=== PATIENT | male | born 1980 | race Caucasian/White ===

== ENCOUNTER → 2023-11-01 08:00 | Outpatient (BNV) | payer OTHER, MEDICAID, SELFPAY | PROVIDERS: Visit Provider Clinical Nurse Specialist Psychiatric/Mental Health | DX: F25.1 Schizoaffective disorder, depressive type (principal); F41.1 Generalized anxiety disorder; F14.20 Cocaine dependence, uncomplicated; F12.20 Cannabis dependence, uncomplicated | CPT/HCPCS: 90792 ==

== ENCOUNTER 2023-11-02 13:42 | Outpatient (REF) | payer OTHER, SELFPAY ==
[2023-11-02 14:08] LABS: Amphetamine Screen Urine Not Detected (Not Detect); Barbiturates, Urine Not Detected (Not Detect); Benzodiazepines Screen Urine Not Detected (Not Detect); Buprenorphine Scr Not Detected (Not Detect); Cannabinoid Screen Urine POSITIVE (Not Detect); Cocaine Screen Urine POSITIVE (Not Detect); Fentanyl, urine Not Detected (Not Detect); Methadone Screen, Urine Not Detected (Not Detect); Opiate Screen Urine Not Detected (Not Detect); Oxycodone Screen Urine Not Detected (Not Detect); Phencyclidine Screen Urine Not Detected (Not Detect)
== END 2023-11-02 13:43 | disposition home or self-care (01) ==
LOC: HO.LNP 13:42
PROVIDERS: Visit Provider Clinical Nurse Specialist Psychiatric/Mental Health
DX: F12.20 Cannabis dependence, uncomplicated (principal); F14.20 Cocaine dependence, uncomplicated; F25.1 Schizoaffective disorder, depressive type
CPT/HCPCS: 80307

== ENCOUNTER → 2023-11-05 08:00 | Outpatient (BNV) | payer OTHER, MEDICAID, SELFPAY | PROVIDERS: Visit Provider Psychiatry & Neurology Psychiatry | DX: F25.1 Schizoaffective disorder, depressive type (principal); F41.1 Generalized anxiety disorder; F14.20 Cocaine dependence, uncomplicated | CPT/HCPCS: 99213 ==

== ENCOUNTER 2023-11-11 10:00 | Outpatient (RCR) | payer OTHER, SELFPAY ==
--- NOTE | 2023-11-01 11:01 | P.PNPSP_ITS ---
Subjective Subjective Reason For Visit: depression,anxiety,JEFF Assessment & Plan Certification I certify that partial hospital treatment is medically necessary due to the symptoms and problems resulting from the patient's mental illness and the failure to treat the patient at the partial hospital level of care would likely result in the patient requiring inpatient psychiatric care which could not be prevented at a less intensive level of care. Total time managing care of this patient today ____ minutes. Discharge Plan Discharge Attending provider: Sarita Garvin Print Language: Spanish
[2023-11-01 13:11] VITALS: BP 117/79; PULSE 98; TEMP 36.8
[2023-11-01 13:14] VITALS: BMI 29.8
--- NOTE | 2023-11-01 13:56 | P.HPPSP_ITS ---
HPI Date of Service: 11/01/23 Chief Complaint: depression,anxiety,JEFF Sources of Information: patient interviewed, chart reviewed and crisis/core team assessment reviewed HPI Healthcare Proxy: No Guardianship: No Narrative: 42 yo male referred to PHP from [facility] where he was sect 35 by his [place] [employer] due to violating his probation and using cocaine daily. Pt tells ne he has schizophrenia. He is on Invega and was on Invega Sustenna IM which worked well but the tablets PO don't work as well. Pt states that he struggles with hearing voices and seeing visions. He also says he has not had a therpaist for a while. He reports depression, anxiety, lack of enjoyments, forgetfulness, poor sleep and a feeling hopelessness. He denies any current SI or HI. He reports he drank a beer yesterday but only drinks one beer approximately 10-12 times a year and doesn't consider it a problem. Pt has no current providers but was referred to [facility] Past Psychiatric History: [facility] 2023 65 day inpt sect 35. long hx of tx on and off since childhood- he is unable to give details. suicide attempt 12 yrs ago after girlfriend . [facility] Medical History (Updated 11/01/23 @ 14:25 by Rosario Ca APRN) Cocaine abuse GERD (gastroesophageal reflux disease) Family History: pt bron and raised in [place] by bio parents. He has 3 sibs 2 older and 1 younger. 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 pt currently receives SSDI. Social History: pt lives with parents in [place]. ; pt is single Substance History: long hx of substance use - started using oxycontin and percocet in his 20's stopped using opiates 10 yrs ago. pt uses cannabis daily and uses cocaine episodically last use being one week ago. Trauma History: unknown Diagnostics Vital Signs (24Hr): Vital Signs - 24 hr 11/01/23 13:11 Temperature 98.2 F Pulse Rate 98 Blood Pressure 117/79 BMI result Body Mass Index 29.8 Meds/Allergies Allergies Allergies Allergy/AdvReac Type Severity Reaction Status Date / Time No Known Allergies Allergy Verified 11/01/23 13:14 Mental Status Exam Mental Status Exam Patient Appearance: Appropriate Patient Orientation: Person, Place, Time and Situation Level of Consciousness: Awake Patient Behavior: Appropriate and Passive Mood Description: Withdrawn Ability to Follow Directions: Fair Speech Pattern: Monotone and Delayed Memory Description: Episodic Impaired Hallucinations: Auditory and Visual Thought Process: Slowed Thinking Judgement: Poor Assessment & Plan Assessment & Plan (1) Schizoaffective disorder, depressive type: Status: Acute Code(s): F25.1 - Schizoaffective disorder, depressive type (2) LISY (generalized anxiety disorder): Status: Acute Code(s): F41.1 - Generalized anxiety disorder (3) Cocaine abuse: Status: Inactive Code(s): F14.10 - Cocaine abuse, uncomplicated (4) Cocaine use disorder, severe, dependence: Status: Acute Code(s): F14.20 - Cocaine dependence, uncomplicated (5) Cannabis use disorder, severe, dependence: Status: Acute Code(s): F12.20 - Cannabis dependence, uncomplicated Plan admit to [facility] with dual dx focus continue current medications Patient educated on: therapeutic strategies Informed Consent: further education needed Reason for continued partial hosp. stay Substantial Risk for: harm to self and inability to function Certification I certify that partial hospital treatment is medically necessary due to the symptoms and problems resulting from the patient's mental illness and the failure to treat the patient at the partial hospital level of care would likely result in the patient requiring inpatient psychiatric care which could not be prevented at a less intensive level of care. Time Spent With Patient Time: Total time managing care of this patient today _60___ minutes.
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
--- NOTE | 2023-11-02 09:04 | PC.NURSE ---
Pierre agreed yesterday to complete NGO this morning. I spoke to Pierre when he came into the program this morning. He stated he was not able to give me a sample at this time however he is drinking soda and should be able to complete the NGO soon.
--- NOTE | 2023-11-03 12:30 | PC.NURSE ---
Pierre's NGO positive for Cocaine and Marijuana. I spoke to Pierre about the test and he stated he has not used cocaine since last and stated he would tell me if he used again. I asked Gordon if he could complete another NGO next week and he agreed. He has been attending the substance use groups at [facility]. Denied any cravings. Pierre signed consent to release information and obtain information from [facility]. Will request records.
--- NOTE | 2023-11-03 13:09 | PC.NURSE ---
Called patient's father Sumit at [phone] on 11/02/23 with patient's permission and while patient was present yesterday. Patient reportedly missed his prescriber appointment that was set up by the [facility], his father reports that it was his fault. Stated Pierre is taking his medications. Also stated that patient has given himself the Invega Sustenna injections in the past and Pierre's aunt, who is also a nurse, has given him Invega injections in the past as well. I told both the father and Pierre that he should not be given himself these injections. Medication education provided. Unclear whether patient is taking his medications. Requested records from [facility]. Called patient's pharmacy and confirmed again that patient has not picked up prescriptions for Clonidine, Hydroxyzine, Diphenhydramine, and Invega Sustenna which were filled on 10/12/23. Patient insists that he is taking the medications.
--- NOTE | 2023-11-03 16:35 | HO.PHP ---
Client's case has been opened and reviewed in treatment team.
--- NOTE | 2023-11-03 17:03 | HO.PHP ---
PHP staff member faxed a referral for OP therapy, med management, and college football coach to [facility]. PHP staff member is awaiting a call back.
--- NOTE | 2023-11-05 11:31 | HO.PHP ---
Pierre told this staff that he needed to leave program momentarily to give the car he was using to someone else, he was not specific with details surrounding this. He told staff he wouldn't be gone long, less than 20 minutes. He left around 10:50 to do so, and he did not return until the end of group 2 at 11:30. Staff reached out to his father, but he was back in the group setting at this time.
--- NOTE | 2023-11-05 11:39 | P.PNPSP_ITS ---
Subjective Subjective Date of Service: 11/03/23 Reason For Visit: depression,anxiety,JEFF Medical Problems Affecting Mental Status: No Interim History: Pt states he is doing ok has chronic visual aud hallucinations states he was given his last invega sustena dose.C/o poor sleep anxiety no self harm benadryl 100 clonidine 0.1 Medication Compliance: Yes (reprtedly) Mental Status Exam Mental Status Exam Patient Appearance: Appropriate Patient Orientation: Person, Place, Time and Situation Level of Consciousness: Awake Patient Behavior: Appropriate and Passive Mood Description: Withdrawn Ability to Follow Directions: Fair Speech Pattern: Monotone and Delayed Memory Description: Episodic Impaired Hallucinations: Auditory and Visual Thought Process: Slowed Thinking Judgement: Poor Diagnostics Vital Signs (24Hr): BMI result Body Mass Index 29.8 Assessment & Plan Assessment & Plan (1) Schizoaffective disorder, depressive type: Status: Acute Code(s): F25.1 - Schizoaffective disorder, depressive type (2) LISY (generalized anxiety disorder): Status: Acute Code(s): F41.1 - Generalized anxiety disorder (3) Cocaine use disorder, severe, dependence: Status: Acute Code(s): F14.20 - Cocaine dependence, uncomplicated Plan pt reportedly has pending invega inj on high dose benadryl disccused inc clonidine 0.2 has tolerated 0.1 hs for extended period no current dizziness sys greater than 110 f/u next wk target anxiety and sleep negin cocaine states had 1 slip Patient educated on: diagnosis and medication risk/benefits Informed Consent: understands Reason for contiued partial hosp. stay Substantial Risk for: inability to function and rapid decompensation Certification I certify that partial hospital treatment is medically necessary due to the symptoms and problems resulting from the patient's mental illness and the failure to treat the patient at the partial hospital level of care would likely result in the patient requiring inpatient psychiatric care which could not be prevented at a less intensive level of care. Total time managing care of this patient today ____ minutes. Discharge Plan Discharge Attending provider: Sarita Garvin Medications: No Action clonidine HCl 0.1 mg Tablet 0.1 mg PO BEDTIME diphenhydramine HCl 50 mg Capsule 100 mg PO BEDTIME Rx Instructions: 2 capsules at bedtime. hydroxyzine pamoate 50 mg Capsule 50 mg PO BID Invega Sustenna 234 mg/1.5 mL Syringe 234 mg IM Q30D Patient Comments: Patient stated his father keeps track of when this is due and he stated he is due soon. Stand Alone Forms: Patient Portal Discharge page Print Language: Bahamian
--- NOTE | 2023-11-05 11:50 | PC.NURSE ---
Patient told staff during second group that he needed to leave the group and will be back in 20 minutes as he needed to switch cars with his father. I called patient as he did not return in 20 minutes however, I was not able to get a hold of the patient as the number listed is not correct number. I called and spoke to patient's father Sumit who stated he will try and get a hold of Pierre and call me back. I asked Sumit if he was helping Sumit with his medications and he stated Sumit is taking medications on his own and will be getting the Invega Sustenna on Wednesday administered by his aunt who is a nurse. Dr Warner is aware. Pierre came back to the program shortly afterwards and was vague about where he went to. Stated he was getting some books from someone. I asked him if he was out getting substances and he stated he was not. Did not appear to be impaired. Will repeat NGO next week.
--- NOTE | 2023-11-05 13:11 | HO.PHP ---
When staff returned to group 3, Pierre had returned to program, and it appears novels were laid on out the table for other members to take. He stated he was switching or returning a car during this time. He was vague and unclear with details surrounding this.
--- NOTE | 2023-11-08 09:20 | HO.PHP ---
[facility] staff member reached out to Pierre due to Pierre not showing for program this morning. Pierre disclosed that his father contacted the program and left a message he believes it was for the nurse. Pierre disclosed he is not feeling well, in which he reported feeling dizzy and is having a hard time with moving around. Pierre reported no safety concerns and stated he will be in attendance to program tomorrow. [facility] staff member was receptive. [facility] staff member informed the nurse around concerns with Pierre stating he was dizzy. The nurse reached out to Pierre to further assess.
--- NOTE | 2023-11-08 09:53 | PC.NURSE ---
Pierre called out sick today. He c/o dizziness, weakness, stomach pain x [address] Warner aware. Patient advised to hold Clonidine and increase fluid intake per Dr. Warner. Patient also advised to f/u with Urgent Care. He stated he has plans to go to Urgent Care today. He is home with his father.
--- NOTE | 2023-11-09 09:13 | PC.NURSE ---
Patient's father brought in an email from [facility] with patient's medication list. Copy in patient's chart.
[2023-11-09 12:00] VITALS: BP 99/69; PULSE 79; TEMP 36.9
[2023-11-09 12:51] VITALS: BP 88/63; PULSE 75
--- NOTE | 2023-11-09 12:54 | PC.NURSE ---
12:00 BP 99/69 P 79. Reports he had smoked a cigarette recently. Repeat BP at 12:50 88/63 P 75. Patient encouraged to increase fluid intake. He was given 3 bottles of water to drink. He reports he stopped taking the Clonidine as advised by Dr. Warner. He stated he feels better today. Less dizzy. Reports that he was feeling sick on Wednesday when he got home from the program, reports some nausea and vomiting on Wednesday and Wednesday morning. Stated he is feeling much better today. Patient just came to my office and stated he is feeling a little nauseated and is tired. He stated he has been sleeping a lot d/t not feeling well. He stated he has not taken his medications in a few days d/t not feeling well with the exception of taking the Invega Sustenna on Wednesday. He called his father to come pick him. I spoke to his father and suggested he f/u with urgent care as well as increase fluid intake. Dr Garvin is aware.
--- NOTE | 2023-11-10 09:54 | PC.NURSE ---
Patient has a New PCP appointment on January at 9:[address] Leeann Rivera at [address] [place] [address] [place] [address]. Office Number [phone]. Bring in medication bottles to your appointment.
--- NOTE | 2023-11-10 12:52 | PC.NURSE ---
Patient left before the second group started thus I was not able to take his BP. I called Pierre who stated he is not feeling right physically. He stated he was experiencing dizziness. Denied nausea or vomiting. He stated he feels embarrassed however reports he has been having diarrhea for the past 3 days. He stated he has been drinking fluids as his father bought him Pedialyte. I advised him to go to Urgent Care today to f/u. He stated his father is going to take him today. He also stated his mother is taking him to get food.
--- NOTE | 2023-11-11 09:05 | PC.NURSE ---
Pierre stated he is feeling better today. He has been increaseing his fluid intake. No dizziness, BP 92/67 P 83.
[2023-11-11 09:08] VITALS: BP 92/62; PULSE 83
--- NOTE | 2023-11-11 10:47 | HO.PHP ---
PHP staff member received a VM from Vanita from [facility] with Pierre's OP provider appointments. Pierre's OP therapy intake appointment is scheduled for November 17, 2023 at 10 AM with Sonia Merino at the [address] [place] [address] location in [place], [place]. Pierre's med provider appointment will be scheduled for December 21, 2023 at 11 AM via telehealth with Kendra Winter.
--- NOTE | 2023-11-11 11:35 | PC.NURSE ---
Pierre asked staff if he could go to the ER for a crisis evaluation. He reported depression, does not want to live and is sick of dealing with everything going on in his head. Stated he rather kill himself than go back to long-term. Patient reports he used cocaine yesterday. AH telling him he is worthless and telling him to get high, telling him to kill himself. seeing people make faces at him. Patient is currently on probation and one of the terms of his probation is not to use substances. Ariana escorted him to the ER for evaluation without incident. Nurse to nurse done with Maria A BOWLING in [place]. [facility] asian studies program chair Paola Colunga to notify Care Team.
--- NOTE | 2023-11-11 11:37 | HO.PHP ---
[facility] staff went to meet with Pierre to provide him with his appointment dates and times. When I went to group room, Pierre was struggling with emotional regulation and was tearful. [facility] staff member met with Pierre who expressed that he needs to go into inpatient level of care because his medication isn't right. [facility] staff further explored what he meant by that. Pierre disclosed that he is experiencing auditory and visual hallucinations, in which he noted hearing voices telling him he is worthless, telling him to get high, and telling him to kill himself. Pierre voiced that he is also seeing people looking at him making faces. Pierre expressed struggling with being able to decipher who is really and whats real. Pierre mentioned that he feels he is unsafe and is uncertain to if he will act on it. Pierre shared that he also relapsed on Cocaine yesterday and was supposed to see his horticultural technical officer. Pierre noted he did not see his horticultural technical officer and expressed worry about being placed back in prison due to being on probation. Pierre expressed suicidal comments such as I rather kill myself then go to prison and he is sick of dealing with everything going on in his head. Pierre reported that he feels as though he is going to snap. [facility] staff member explored what that looks like for him. Pierre replied with he smacks his head against the wall. Pierre was brought down to [facility] ED to be evaluated by the Care team. [facility] staff member informed Shantel of the incident, who provided information to the Care team.
--- NOTE | 2023-11-11 14:39 | HO.PHP ---
[facility] staff member spoke with Latasha from the Care Team to engage in care coordination around Pierre Turcios. Latasha asked how Pierre has been presenting in groups, in which the [facility] staff member informed her that Pierre has been engaged within the group discussions but has noted that being in a group setting is difficult due to the auditory and visual hallucinations. Latasha shared that he appears sedated and asked how he presented in groups today. PHP staff voiced that Pierre appeared well this morning but became emotionally dysregulated around 10:45 AM. PHP staff did report that there were a couple days where Pierre was unable to complete a full day program due to feeling sick reporting being dizzy. Latasha was receptive and noted that he is only providing one word answers and appears sedated. PHP staff member voiced that he could be exhausted from crying. Latasha was receptive. [facility] staff informed Latasha if she needs any other information to feel free to reach back out. Latasha was receptive.
== END 2023-11-11 23:59 | disposition home or self-care (01) ==
LOC: HO.PHPA 10:00
PROVIDERS: Visit Provider Psychiatry & Neurology Psychiatry
DX: F25.1 Schizoaffective disorder, depressive type (principal); F41.1 Generalized anxiety disorder; F14.20 Cocaine dependence, uncomplicated; F12.20 Cannabis dependence, uncomplicated
CPT/HCPCS: 90791; 90853

== ENCOUNTER 2023-11-11 11:18 | Inpatient (IN) | payer OTHER, SELFPAY ==
[2023-11-11 11:35] VITALS: BP 110/70; PULSE 85; RESP 16; TEMP 36.5; O2SAT 97; BMI 27.7
--- NOTE | 2023-11-11 11:36 | ED_ITS ---
HPI - Psych General Chief Complaint: Psychiatric Symptoms Stated Complaint: crisis si Time Seen by Provider: 11/11/23 11:51 Source: patient Mode of arrival: ambulatory Limitations: no limitations History of Present Illness ED Provider: Delia Foote PA-C HPI Narrative: Patient is a 42 year old assigned male at with a history of LISY and schizoaffective disorder presenting to the emergency department today with suicidal ideation and worsening depression. Patient states that he is currently in the partial program but his depression is getting worse and he is now suicidal. Patient denies any dizziness, lightheadedness, abdominal pain, nausea, vomiting, fever, chills, blurry vision, double vision, loss of vision, chest pain, difficulty breathing, shortness of breath, back pain, night sweats, pain with urination, increased urinary frequency, increased urinary urgency, blood in his urine or stool, syncope or a near syncopal episode, recent trauma or falls, bowel incontinence, bladder incontinence, or any other complaints at this time. MD complaint: suicidal ideation and feels depressed Onset (ago): day(s) Associated psychiatric symptoms: suicidal ideation Associated symptoms: denies other symptoms Related Data Home Medications ?Medication ?Instructions ?Recorded ?Confirmed clonidine HCl 0.1 mg tablet 0.1 mg PO BEDTIME 11/01/23 11/01/23 diphenhydramine HCl 50 mg capsule 100 mg PO BEDTIME 11/01/23 11/01/23 hydroxyzine pamoate 50 mg capsule 50 mg PO BID 11/01/23 11/01/23 paliperidone palmitate 234 mg/1.5 234 mg IM Q30D 11/01/23 11/01/23 mL intramuscular syringe (Invega Sustenna) olanzapine 10 mg tablet 10 mg PO QPM 11/09/23 11/09/23 Allergies Allergy/AdvReac Type Severity Reaction Status Date / Time No Known Allergies Allergy Verified 11/11/23 11:39 Review of Systems 2 Constitutional: Constitutional: Reports no additional constitutional complaints, Denies chills, Denies fever(s) and Denies night sweats Eyes: Eyes: Reports no additional eye complaints, Denies blurry vision, Denies change in vision, Denies diplopia, Denies eye discharge, Denies loss of vision and Denies eye pain ENT: Denies dizziness Cardiovascular: Cardiovascular: Reports no additional cardiovascular complaints, Denies chest pain, Denies lightheadedness, Denies Loss of Consciousness and Denies dyspnea Respiratory: Respiratory: Reports no additional respiratory complaints and Denies dyspnea Gastrointestinal: Gastrointestinal: Reports no additional gastrointestinal complaints, Denies abdominal pain, Denies melena, Denies hematochezia, Denies change in bowel habits and Denies change in stool character Genitourinary: Genitourinary: Reports no additional male genitourinary complaints, Denies hematuria, Denies oliguria, Denies difficulty urinating, Denies dysuria, Denies urinary frequency, Denies urinary hesitancy, Denies urinary incontinence and Denies urinary urgency Musculoskeletal: Musculoskeletal: Reports no additional musculoskeletal complaints, Denies numbness and Denies tingling Neurologic: Denies dizziness, Denies loss of vision, Denies numbness and Denies tingling Psychiatric: Psychiatric: Reports depression, Denies homicidal ideation and Reports suicidal ideation Endocrine: Endocrine: Reports no additional endocrine complaints Hematologic/Lymphatic: Hematologic/Lymphatic: Reports no additional hematologic/lymphatic complaints Allergic/Immunologic: Allergic/Immunologic: Reports no additional allergic/immunologic complaints [facility] Past Medical History Attestation statement: The following information was validated with the patient. Source: old records reviewed and nursing notes reviewed Medical History Cocaine abuse GERD (gastroesophageal reflux disease) Social History Social History Household Members: Family Patient Tobacco Use Status: Current everyday Tobacco user Tobacco use type: Cigarette Cigarette Packs Per Day: 1 Smoked in Last 30 Days: Yes Use of substances other than those prescribed or required for medical reasons: Yes Substance Use Type: Marijuana Substance Use Frequency: Daily Substance Use Frequency Other:: relapsed yesterday and used cocaine Last Used Substance: Just Prior to Admission Advance Directives: No Do you have a plan to hurt others: No Plan Physical Exam 2 Vital Signs: Vital Signs: Last Vital Signs Temp 97.7 F 11/11/23 11:35 Pulse 85 11/11/23 11:35 Resp 16 11/11/23 11:35 BP 110/70 11/11/23 11:35 Pulse Ox 97 11/11/23 11:35 O2 Del Method Room Air 11/11/23 11:35 BMI result Body Mass Index 27.7 Const: General: cooperative, no acute distress, alert and awake Nutritional Appearance: well nourished Orientation/consciousness: patient oriented x3 Limitations: no limitations HEENT: Head: Yes normal to inspection and Yes atraumatic Ears: hearing grossly normal bilaterally and external ears normal General nose exam: Normal external nose present, no nasal discharge noted and no epistaxis Face and sinus: Yes normal facial exam, No abrasion and No laceration Mouth: Normal oral and palatal mucosa present, no drooling and no muffled voice Eyes: General: appearance normal, both eyes and all related structures P eriorbital: periorbital findings normal Eyelids: Yes eyelids normal C onjunctivae: conjunctivae normal Pupils: Equal, round and reactive pupils present EOM: EOMs intact bilaterally Neck: Neck: Yes normal visual inspection, Yes full ROM and Yes no lymphadenopathy Chest: Chest palpation & inspection: normal inspection of the chest Resp: Effort & Inspection: normal respiratory effort and able to speak in complete sentences GI: Inspection: Yes normal to inspection Neuro: General: patient oriented x3 and moves all extremities Cranial nerves: Yes Equal, round and reactive pupils present Cognition (Neuro): n ormal cognition Extrem: General: Yes normal to inspection, Yes full ROM and Yes capillary refill normal Psych: Appearance: grossly normal Mental Status: mental status grossly normal Affect: Sad affect present Attitude: Guarded attititude/behavior present Thought content: Suicidality present Course Course Course Narrative: This is a Rapid Medical Examination (RME) performed by Rosalio Bhandari PA-C in triage. Full HPI, ROS, assessment and treatment plan per primary provider in the Main ED. 42 yo male with history of schizoaffective disorder, anxiety, polystubstance use disorder who presents to the ER from partial hospitalization program where he has been for the last 2 weeks with worsening depression and new SI for the last 2 days. has been forgetting to take his psych meds, per dad he has been on meds since age 9. hx suidide attempts in the past. no drug or ETOH use today. was last inpatient at [facility] a few weeks ago and had some med adjustments. Plan: medically clear and CARE team evaluation Medical Decision Making Medical Decision Making MDM Narrative: Patient is a 42 year old assigned male at with a history of LISY and schizoaffective disorder presenting to the emergency department today with increased depression and suicidal ideation. Patient's physical exam was as noted in the physical exam portion of this note. Patient's blood work was unremarkable. Patient's urine showed no acute process. I explained my physical exam findings as well as all test results to the patient. I answered all questions asked by the patient. Patient is currently awaiting CARE team evaluation. Patient's disposition will be determined after CARE team evaluation. Differential Diagnosis Differential Diagnoses: The differential diagnosis associated with the presentation includes Depression Suicidal ideation Admission/Observation Consideration of admission/observation: Escalation of care including admission/observation considered Patient's disposition will be determined after CARE team evaluation. Lab Data [facility] Lab Attestation statement: I reviewed the patient's lab results. My interpretation of these results are in the MDM Rationale portion of this note. 11/11/23 11:46 11/11/23 11:45 Labs: Lab Results 11/11/23 11/11/23 Range/Units 11:45 11:46 WBC 8.4 (4.8-10.8) X10*3/uL RBC 4.44 L (4.60-5.80) X10*6/uL Hgb 13.1 L (14.0-18.0) g/dl Hct 37.5 L (42.0-52.0) % MCV 84.5 (80.0-98.0) fL MCH 29.5 (27.0-33.0) pg MCHC 34.9 (31.0-36.0) g/dl RDW 13.5 (11.0-16.0) % Plt Count 324 (160-400) X10*3/uL MPV 8.8 L (9.4-12.4) fL Immature Gran % (Auto) 0.4 (0.0-0.4) % Neut % (Auto) 64.6 (45-73) % Lymph % (Auto) 25.0 (20-40) % [place] % (Auto) 7.0 (2-11) % Eos % (Auto) 2.4 (0-4) % Baso % (Auto) 0.6 (0-2) % Lymph # (Auto) 2.1 (1.2-4.9) X10*3/uL [place] # (Auto) 0.6 (0.1-1.2) X10*3/uL Eos # (Auto) 0.2 (0.0-0.4) X10*3/uL Baso # (Auto) 0.1 (0.0-0.2) X10*3/uL Abs Immat Gran (auto) 0.03 (0.00-0.03) X10*3/uL Absolute Neuts (auto) 5.5 (2.0-8.3) x10*3/uL Absolute Nucleated RBC 0.000 (0.0-0.012) X10*3/uL Nucleated RBC % (auto) 0.0 (0.0-0.2) /100WBC Sodium 138 (135-145) mmol/L Potassium 3.7 (3.3-5.1) mmol/L Chloride 109 H (96-108) mmol/L Carbon Dioxide 22 (22-29) mmol/L Anion Gap 11 L (12-20) BUN 8 L (9-16) mg/dL Creatinine 0.86 (0.5-1.4) mg/dL Estim Creat Clear Calc 119.7 Estimated GFR > 60 Random Glucose 101 (60-115) mg/dL Calcium 9.5 (8.4-10.2) mg/dL Magnesium 1.9 (1.6-2.6) mg/dL Total Bilirubin 0.4 (0.0-1.0) mg/dL Direct Bilirubin < 0.1 (0.0-0.5) mg/dL AST 14 (5-37) U/L ALT 11 (0-40) U/L Alkaline Phosphatase 75 (39-117) U/L Total Protein 6.8 (6.5-8.0) g/dL Albumin 3.9 (3.5-5.0) g/dL Ethyl Alcohol < 10 mg/dL Discharge Plan Discharge Clinical Impression: Suicidal ideation Patient Disposition: Still a Patient Prescriptions: No Action clonidine HCl 0.1 mg Tablet 0.1 mg PO BEDTIME diphenhydramine HCl 50 mg Capsule 100 mg PO BEDTIME Rx Instructions: 2 capsules at bedtime. hydroxyzine pamoate 50 mg Capsule 50 mg PO BID Invega Sustenna 234 mg/1.5 mL Syringe 234 mg IM Q30D Patient Comments: Patient stated his father keeps track of when this is due and he stated he is due soon. olanzapine 10 mg Tablet 10 mg PO QPM Interventions: [place]-Suicide Risk Severity Scale Last Done: 11/11/23 12:08 Print Language: Polish
[2023-11-11 11:56] LABS: MANUAL DIFF FLAG NO
[2023-11-11 12:00] LABS: Basophils Absolute Auto 0.1 X10*3/uL (0.0-0.2); Basophils Percent Auto 0.6 % (0-2); Eosinophils Absolute Auto 0.2 X10*3/uL (0.0-0.4); Eosinophils Percent Auto 2.4 % (0-4); Hematocrit 37.5 % (42.0-52.0); Hemoglobin 13.1 g/dl (14.0-18.0); Imm Gran Abs Auto 0.03 X10*3/uL (0.00-0.03); Imm Gran Pct Auto 0.4 % (0.0-0.4); Lymphocytes Absolute Auto 2.1 X10*3/uL (1.2-4.9); Mean Corpuscular HGB Conc 34.9 g/dl (31.0-36.0); Mean Corpuscular Hemoglobin 29.5 pg (27.0-33.0); Mean Corpuscular Volume 84.5 fL (80.0-98.0); Mean Platelet Volume 8.8 fL (9.4-12.4); Monocytes Absolute Auto 0.6 X10*3/uL (0.1-1.2); Neutrophils Absolute Auto 5.5 x10*3/uL (2.0-8.3); Neutrophils Percent Auto 64.6 % (45-73); Platelet Count 324 X10*3/uL (160-400); Red Blood Count 4.44 X10*6/uL (4.60-5.80); Red Cell Distribution Width 13.5 % (11.0-16.0); White Blood Count 8.4 X10*3/uL (4.8-10.8)
[2023-11-11 12:16] LABS: Alanine Aminotransferase 11 U/L (0-40); Albumin Level 3.9 g/dL (3.5-5.0); Alkaline Phosphatase 75 U/L (39-117); Anion Gap 11 (12-20); Aspartate Amino Transferase 14 U/L (5-37); Bilirubin Direct < 0.1 mg/dL (0.0-0.5); Bilirubin Total 0.4 mg/dL (0.0-1.0); Blood Urea Nitrogen 8 mg/dL (9-16); Calcium 9.5 mg/dL (8.4-10.2); Carbon Dioxide 22 mmol/L (22-29); Chloride 109 mmol/L (96-108); Creatinine Clr Calc Pharmacy 119.7; Estimated Glomerular Filt Rate > 60; Ethanol < 10 mg/dL; Glucose Random 101 mg/dL (60-115); Magnesium 1.9 mg/dL (1.6-2.6); Potassium 3.7 mmol/L (3.3-5.1); Sodium 138 mmol/L (135-145); Total Protein 6.8 g/dL (6.5-8.0)
[2023-11-11 13:16] LABS: Appearance Urine Clear; Color Urine Yellow; Glucose Urine UA Negative (Negative); Leukocyte Esterase Urine Negative (Negative); Nitrite Urine Negative (Negative); Urine Blood Negative (Negative); Urine Ketones Negative (Negative); Urine Protein Negative (Neg-Trace)
[2023-11-11 13:27] LABS: Amphetamine Screen Urine Not Detected (Not Detect); Barbiturates, Urine Not Detected (Not Detect); Benzodiazepines Screen Urine Not Detected (Not Detect); Buprenorphine Scr Not Detected (Not Detect); Cannabinoid Screen Urine POSITIVE (Not Detect); Cocaine Screen Urine POSITIVE (Not Detect); Fentanyl, urine Not Detected (Not Detect); Methadone Screen, Urine Not Detected (Not Detect); Opiate Screen Urine Not Detected (Not Detect); Oxycodone Screen Urine Not Detected (Not Detect); Phencyclidine Screen Urine Not Detected (Not Detect)
--- NOTE | 2023-11-11 14:22 | MHC.CARE ---
Patient evaluated by the CARE Team, disposition inpatient psychiatric treatment. ED provider, Dr. Langston updated.
--- NOTE | 2023-11-11 15:17 | MHC.EDTECH ---
this tech took up care @ 1515, when checking on pt the pt was resting in their bed watching TV, pt appears to be in no apparent distress
[2023-11-11 18:09] VITALS: BP 104/64; PULSE 80; RESP 16; TEMP 36.4; O2SAT 97
[2023-11-11] MEDS: Nicotine 21 MG PATCH.TD24 TRANSDERMA (18:35)
[2023-11-11] MEDS: LORazepam 1 MG TABLET 2 MG PO (18:35)
[2023-11-11] MEDS: HaloperidoL 5 MG TABLET PO (18:36)
[2023-11-11] MEDS: diphenhydrAMINE HCL 25 MG CAPSULE 50 MG PO (18:36)
--- NOTE | 2023-11-11 18:41 | PC.NURSE ---
Patient was becoming increasingly agitated, order given for some meds. Has not taken any meds since yesterday. pharmacy did not do the med rec. med rec done by this RN
--- NOTE | 2023-11-11 19:04 | PC.NURSE ---
patient appears to remanin at rest at present respirations are even and un;abpred patient appears in no distress.
[2023-11-11] MEDS: hydrOXYzine HCL 50 MG TABLET PO (20:37)
[2023-11-11] MEDS: OLANZapine 10 MG TABLET PO (20:37)
[2023-11-11] MEDS: diphenhydrAMINE HCL 25 MG CAPSULE 100 MG PO (20:37)
[2023-11-11] MEDS: cloNIDine HCL 0.1 MG TABLET PO (20:38)
--- NOTE | 2023-11-12 07:26 | PC.NURSE ---
report taken from previous rn, pt currently sleeping. bed search in progress.
--- NOTE | 2023-11-12 08:04 | ECG_ITS ---
Test Reason : med cleareance Blood Pressure : / mmHG Vent. Rate : 073 BPM Atrial Rate : 073 BPM P-R Int : 150 ms QRS Dur : 092 ms QT Int : 374 ms P-R-T Axes : 041 061 052 degrees QTc Int : 412 ms Normal sinus rhythm Normal ECG When compared with ECG of 14-MAR-2017 23:27, Vent. rate has decreased BY 54 BPM Referred By: Maty Langston Electronically Signed By:William Whitaker
[2023-11-12 08:18] VITALS: BP 98/63; PULSE 77; RESP 15; TEMP 36.4; O2SAT 98
[2023-11-12] MEDS: hydrOXYzine HCL 50 MG TABLET PO (08:58)
--- NOTE | 2023-11-12 11:35 | PC.NURSE ---
ASSUMED CARE OF THIS PT, CURRENTLY SLEEP IN HIS ROOM, RESP EVEN, NONLABOURED.
--- NOTE | 2023-11-12 11:50 | PC.NURSE ---
PT UP TO THOMAS, Ashley&OX4. STATES HE WAS ABLE TO SLEEP WITHOUT NIGHTMARES, FEELS CALM AT THIS TIME.
[2023-11-12 12:47] VITALS: BMI 27.4
[2023-11-12 12:56] VITALS: BP 102/60; PULSE 82; RESP 16; TEMP 36.6; O2SAT 98
[2023-11-12 13:08] VITALS: BP 102/60; PULSE 82; RESP 14; TEMP 36.6; O2SAT 98
[2023-11-12 15:09] VITALS: BP 110/72; PULSE 70; O2SAT 98
[2023-11-12] MEDS: cloNIDine HCL 0.1 MG TABLET PO ×2 (15:17→20:57)
[2023-11-12] MEDS: diphenhydrAMINE HCL 25 MG CAPSULE 50 MG PO (16:20)
[2023-11-12] MEDS: HaloperidoL 5 MG TABLET PO (16:21)
--- NOTE | 2023-11-12 18:17 | PC.ADMIT ---
Addendum entered by Jorge Capone RN 11/12/23 18:51: Pt picked up Invega shot on 11/07 and was reportedly given to him by his sister who is a former nurse on the same day. Original Note: Pierre Turcios was admitted to at 12:40pm from [facility] on a CV for treatment of SI with auditory hallucinations. Precipitants of this admission include recent feelings of hopelessness/feeling like a burden to family. No other recent changes identified by the pt. Pt is alert, oriented to person, place, time, and situation. Pt cooperative with the admission process although overly anxious/visibly struggling with concentration and nervousness (fidgeting, restless leg), help seeking wants to ?get meds right? as he is struggling with suicidality and auditory hallucinations. Pt reports anxiety and depression 10/10, as well as auditory hallucinations: ?It?s like there?s 30 people in this room all chattering, I can?t tell what they?re saying?. Pt currently reports cocaine and marijuana use at home, and he is a 2-pack everyday smoker. Pt has a medical history of GERD but denied all physical complaints at this moment. Pt denied SI plan or intent. Pt did report some passive thoughts of self-harm ?but it?s way less now?. Feels able to seek staff if SI occurs. Pt is psych/dual + structured group appropriate. He was placed on 15 minute checks for safety.?
[2023-11-12 20:50] VITALS: BP 105/56; PULSE 73; RESP 16; TEMP 37.6; O2SAT 97
[2023-11-12] MEDS: diphenhydrAMINE HCL 25 MG CAPSULE 100 MG PO (20:56)
[2023-11-12] MEDS: OLANZapine 10 MG TABLET PO (20:58)
[2023-11-12] MEDS: traZODone HCL 50 MG TABLET PO (21:40)
[2023-11-13 08:00] VITALS: BP 94/66; PULSE 74; RESP 18; TEMP 36.9; O2SAT 97
[2023-11-13] MEDS: Nicotine 21 MG PATCH.TD24 TRANSDERMA (08:31)
[2023-11-13] MEDS: hydrOXYzine HCL 50 MG TABLET PO ×2 (08:32→13:28)
--- NOTE | 2023-11-13 09:34 | P.HPPS_ITS ---
[facility] Date of Service: 11/13/23 Chief Complaint: crisis Sources of Information: patient interviewed, chart reviewed and crisis/core team assessment reviewed HPI Subjective Notes: Alejandro Warning and Conditional Voluntary Narrative: Patient is a 42 year old male with hx of Schizoaffective d/o and cocaine use d/o, who presented to [facility] ER from [facility] d/t suicidal ideation secondary to increased auditory and visual hallucinations. Per crisis report, Pt told [facility] staff he felt hopeless and suicidal with plan to overdose or stab himself. Pt has been attending [facility] since 11/01/23, referred by [facility] where he was on a Section 35 for 65 days. Pt reported he is triggered in groups at [facility] and believes his medications are not working well for his hallucinations. Pt reported feeling he is a burden to his parents and has been thinking about suicide for several days. Pt stated the last time he felt happy was 6 years ago before his girlfriend . UTOX positive for cocaine and cannabis. Pt received Invega Sustenna IM on 11/08/2023. During admission assessment, pt presents alert, oriented, calm and cooperative. Pt reports feeling depressed today; pt stated, the voices and visions made me want to kill myself. I've had them my whole life, but they started to increase. It sounds like I'm in a auditorium and I see visions of people, sometimes they look normal and sometimes they don't . Pt reports he has been using cocaine for a few days but was clean for months ; he reports smoking marijuana daily. Pt denies other substance use. Pt reports he does not have outpatient psychiatric providers but would like a referral to a psychiatrist and therapist. Pt denies SI/HI. Past Psychiatric History: hx of 3 inpatient psychiatric hospitalizations at [facility] ([facility] [facility]). [facility] 2023 65 day inpt sect 35. long hx of tx on and off since childhood- he is unable to give details. suicide attempt 12 yrs ago after girlfriend . Pt reports he does not have outpatient psychiatric providers. Medical Evaluation Reviewed: Yes [facility] Medical History Cocaine abuse GERD (gastroesophageal reflux disease) Family History: Aunt: Schizophrenia Social History: Lives with parents, single, no kids, disability. Substance History: cocaine, marijuana, prescription pain medication(Oxycotin and percocet). Trauma History: denies Diagnostics Vital Signs (24Hr): Vital Signs - 24 hr 11/12/23 12:56 11/12/23 13:08 11/12/23 15:09 Temperature 97.9 F 97.9 F Pulse Rate 82 82 70 Respiratory Rate 16 14 Blood Pressure 102/60 102/60 110/72 Pulse Oximetry 98 98 98 Oxygen Delivery Method Room Air Room Air Room Air 11/12/23 20:50 11/13/23 08:00 Temperature 99.7 F 98.5 F Pulse Rate 73 74 Respiratory Rate 16 18 Blood Pressure 105/56 L 94/66 Pulse Oximetry 97 97 Oxygen Delivery Method Room Air Room Air BMI result Body Mass Index 27.4 Labs 11/11/23 11:46 11/13/23 09:10 Labs: Laboratory Results - last 48 hr 11/11/23 11/11/23 11/11/23 11:45 11:46 13:06 WBC 8.4 RBC 4.44 L Hgb 13.1 L Hct 37.5 L MCV 84.5 MCH 29.5 MCHC 34.9 RDW 13.5 Plt Count 324 MPV 8.8 L Immature Gran % (Auto) 0.4 Neut % (Auto) 64.6 Lymph % (Auto) 25.0 [place] % (Auto) 7.0 Eos % (Auto) 2.4 Baso % (Auto) 0.6 Lymph # (Auto) 2.1 [place] # (Auto) 0.6 Eos # (Auto) 0.2 Baso # (Auto) 0.1 Abs Immat Gran (auto) 0.03 Absolute Neuts (auto) 5.5 Absolute Nucleated RBC 0.000 Nucleated RBC % (auto) 0.0 Sodium 138 Potassium 3.7 Chloride 109 H Carbon Dioxide 22 Anion Gap 11 L BUN 8 L Creatinine 0.86 Estim Creat Clear Calc 119.7 Estimated GFR > 60 Random Glucose 101 Calcium 9.5 Magnesium 1.9 Total Bilirubin 0.4 Direct Bilirubin < 0.1 AST 14 ALT 11 Alkaline Phosphatase 75 Total Protein 6.8 Albumin 3.9 Urine Color Yellow Urine Appearance Clear Urine pH 6.0 Ur Specific [place] 1.010 Urine Protein Negative Urine Glucose (UA) Negative Urine Ketones Negative Urine Blood Negative Urine Nitrite Negative Ur Leukocyte Esterase Negative Urine Opiates Screen Not Detected Ur Buprenorphine Scrn Not Detected Ur Oxycodone Screen Not Detected Urine Methadone Screen Not Detected Urine Fentanyl Screen Not Detected Ur Barbiturates Screen Not Detected Ur Phencyclidine Scrn Not Detected Ur Amphetamines Screen Not Detected U Benzodiazepines Scrn Not Detected Urine Cocaine Screen POSITIVE H U Marijuana (THC) Screen POSITIVE H Ethyl Alcohol < 10 Meds/Allergies Meds Home Medications ?Medication ?Instructions ?Recorded ?Confirmed ?Type clonidine HCl 0.1 mg tablet 0.1 mg PO BEDTIME 11/01/23 11/11/23 History diphenhydramine HCl 50 mg capsule 100 mg PO BEDTIME 11/01/23 11/11/23 History hydroxyzine pamoate 50 mg capsule 50 mg PO BID 11/01/23 11/11/23 History paliperidone palmitate 234 mg/1.5 234 mg IM Q30D 11/01/23 11/11/23 History mL intramuscular syringe (Invega Sustenna) olanzapine 10 mg tablet 10 mg PO QPM 11/09/23 11/11/23 History Allergies Allergies Allergy/AdvReac Type Severity Reaction Status Date / Time No Known Allergies Allergy Verified 11/11/23 11:39 Mental Status Exam Mental Status Exam Narrative: Pt is alert and oriented; behavior is cooperative and calm; dressed in casual attire; mood is described as depressed ; eye contact appropriate; Speech is normal rate, volume and not pressured; thought process is organized and goal directed; Thought content is on tx; denies SI/HI. pt reports auditory and visual hallucinations. Assessment & Plan Assessment & Plan (1) Schizoaffective disorder, depressive type: Status: Acute Code(s): F25.1 - Schizoaffective disorder, depressive type (2) Cocaine use disorder, severe, dependence: Status: Acute Code(s): F14.20 - Cocaine dependence, uncomplicated Plan Patient is a 42 year old male with hx of Schizoaffective d/o and cocaine use d/o, who presented to [facility] ER from [facility] PHP d/t suicidal ideation secondary to increased auditory and visual hallucinations. Plan: CV 15 minute safety checks continue home medications referral to outpatient prescriber and therapist encourage groups discharge planning Patient educated on: diagnosis, medication risk/benefits, substance abuse and therapeutic strategies Informed Consent: understands Reason for continued inpatient stay Substantial Risk for: harm to self and med/psych decompensation Statement Statement: I have reviewed the history and physical and performed a pertinent examination on my patient. No changes have occurred unless specified. If the History and Physical was not performed prior to admission, the Hospitalist's service will be consulted for completing the admission physical. Time Spent With Patient Time: Total time managing care of this patient today _60___ minutes.
[2023-11-13 10:18] LABS: Alanine Aminotransferase 14 U/L (0-40); Albumin Level 3.7 g/dL (3.5-5.0); Alkaline Phosphatase 68 U/L (39-117); Anion Gap 12 (12-20); Aspartate Amino Transferase 14 U/L (5-37); Bilirubin Total 0.2 mg/dL (0.0-1.0); Blood Urea Nitrogen 12 mg/dL (9-16); Carbon Dioxide 25 mmol/L (22-29); Chloride 107 mmol/L (96-108); Cholesterol 232 mg/dL (<200); Estimated Glomerular Filt Rate > 60; Glucose Fasting 87 mg/dL (60-99); HDL Cholesterol 23 mg/dL (>40); Potassium 4.1 mmol/L (3.3-5.1); Sodium 140 mmol/L (135-145); Total Protein 6.5 g/dL (6.5-8.0); Triglycerides 403 mg/dL (<150)
[2023-11-13] MEDS: HaloperidoL 5 MG TABLET PO ×2 (13:34→17:17)
[2023-11-13 14:50] VITALS: BP 104/72
[2023-11-13] MEDS: cloNIDine HCL 0.1 MG TABLET PO ×2 (14:50→21:18)
[2023-11-13] MEDS: diphenhydrAMINE HCL 25 MG CAPSULE 50 MG PO (19:46)
[2023-11-13 21:15] VITALS: BP 112/77; PULSE 82; RESP 18; TEMP 36.6; O2SAT 98
[2023-11-13 21:18] VITALS: BP 112/77
[2023-11-13] MEDS: traZODone HCL 50 MG TABLET PO (21:18)
[2023-11-13] MEDS: OLANZapine 10 MG TABLET PO (21:19)
[2023-11-13] MEDS: diphenhydrAMINE HCL 25 MG CAPSULE 100 MG PO (21:19)
[2023-11-14 08:00] VITALS: BP 110/58; PULSE 71; RESP 14; TEMP 36.9; O2SAT 96
[2023-11-14] MEDS: Nicotine 21 MG PATCH.TD24 TRANSDERMA (08:43)
[2023-11-14] MEDS: hydrOXYzine HCL 50 MG TABLET PO ×2 (08:44→12:11)
--- NOTE | 2023-11-14 09:04 | HO.PSYCHPN ---
Subjective Subjective Date of Service: 11/14/23 Reason For Visit: crisis Subjective Notes: 3 Day Interim History: Reviewed with Dr. Warner. Pt signed 3 day notice. Pt stated, I feel okay. I signed a 3 day notice because I want to be with my family rather than being here. They are my best support . Pt reports he feels Haldol is helping the voices and visual hallucinations tolerable . pt denies SI/HI. Medication Compliance: Yes Side effects from medications: No Attending Groups: No Review of Systems Constitutional: Reports as per HPI Eyes: Denies as per HPI Reports as per HPI Cardiovascular: Reports as per HPI Respiratory: Reports as per HPI Gastrointestinal: Reports as per HPI Genitourinary: Reports as per HPI Musculoskeletal: Reports as per HPI Skin/Breast: Reports as per HPI Reports as per HPI Psychiatric: Reports as per HPI Endocrine: Reports as per HPI Hematologic/Lymphatic: Reports as per HPI Allergic/Immunologic: Reports as per HPI Mental Status Exam Mental Status Exam Narrative: Pt is alert and oriented; behavior is cooperative and calm; dressed in casual attire; mood is described as depressed ; eye contact appropriate; Speech is normal rate, volume and not pressured; thought process is organized and goal directed; Thought content is on tx; denies SI/HI. pt reports auditory and visual hallucinations but tolerable. Diagnostics Vital Signs (24Hr): Vital Signs - 24 hr 11/13/23 14:50 11/13/23 21:15 11/13/23 21:18 Temperature 97.8 F Pulse Rate 82 Respiratory Rate 18 Blood Pressure 104/72 112/77 112/77 Pulse Oximetry 98 Oxygen Delivery Method Room Air 11/14/23 08:00 Temperature 98.4 F Pulse Rate 71 Respiratory Rate 14 Blood Pressure 110/58 L Pulse Oximetry 96 Oxygen Delivery Method Room Air BMI result Body Mass Index 27.4 Labs 11/11/23 11:46 11/13/23 09:10 Labs: Laboratory Results - last 48 hr 11/13/23 09:10 Sodium 140 Potassium 4.1 Chloride 107 Carbon Dioxide 25 Anion Gap 12 BUN 12 Creatinine 1.19 Estim Creat Clear Calc 80.0 Estimated GFR > 60 Fasting Glucose 87 Calcium 9.0 Total Bilirubin 0.2 AST 14 ALT 14 Alkaline Phosphatase 68 Total Protein 6.5 Albumin 3.7 Triglycerides 403 H Cholesterol 232 H LDL Cholesterol, Calc TNP HDL Cholesterol 23 L Medications Medications Current Medications Acetaminophen (Acetaminophen 325 Mg Tablet) 650 mg PO Q6H PRN PRN Reason: Headache/Pain Mild Scale (1-3) Al Hydroxide/Mg Hydroxide (Magnesium Hydrox/Alum Hydrox 30 Ml Oral.Susp) 30 ml PO Q6H PRN PRN Reason: Heartburn/Nausea Clonidine HCl (Clonidine Hcl 0.1 Mg Tablet) 0.1 mg PO BEDTIME KAELA; Protocol Last Admin: 11/13/23 21:18 Dose: 0.1 mg Clonidine HCl (Clonidine Hcl 0.1 Mg Tablet) 0.1 mg PO Q4H PRN; Protocol PRN Reason: severe anxiety Last Admin: 11/13/23 14:50 Dose: 0.1 mg Diphenhydramine HCl (Diphenhydramine Hcl 25 Mg Capsule) 100 mg PO BEDTIME KAELA Last Admin: 11/13/23 21:19 Dose: 100 mg Diphenhydramine HCl (Diphenhydramine Hcl 25 Mg Capsule) 50 mg PO TID PRN PRN Reason: EPS prophylaxis. with haldol. Last Admin: 11/13/23 19:46 Dose: 50 mg Haloperidol (Haloperidol 5 Mg Tablet) 5 mg PO TID PRN PRN Reason: severe anxiety Last Admin: 11/13/23 17:17 Dose: 5 mg Hydroxyzine HCl (Hydroxyzine Hcl 50 Mg Tablet) 50 mg PO BID@0800,1200 [facility] Last Admin: 11/14/23 08:44 Dose: 50 mg Magnesium Hydroxide (Milk Of Magnesia 30 Ml Oral.Susp) 30 ml PO DAILY PRN PRN Reason: Constipation Nicotine (Nicotine 21 Mg Patch.Td24) 21 mg TRANSDERMA DAILY [facility] Last Admin: 11/14/23 08:43 Dose: 21 mg Nicotine Polacrilex (Nicotine Polacrilex 2 Mg Gum) 4 mg BUCCAL Q2H PRN PRN Reason: Nicotine Cravings Olanzapine (Olanzapine 10 Mg Tablet) 10 mg PO BEDTIME [facility]A Last Admin: 11/13/23 21:19 Dose: 10 mg Paliperidone Palmitate (Paliperidone Palmitate 234 Mg/1.5 Ml Syringe) 234 mg IM Q30D [facility] Trazodone HCl (Trazodone Hcl 50 Mg Tablet) 50 mg PO BEDTIME MRX1 PRN PRN Reason: Insomnia Last Admin: 11/13/23 21:18 Dose: 50 mg Allergies Allergies Allergy/AdvReac Type Severity Reaction Status Date / Time No Known Allergies Allergy Verified 11/11/23 11:39 Assessment & Plan Assessment & Plan (1) Schizoaffective disorder, depressive type: Status: Acute Code(s): F25.1 - Schizoaffective disorder, depressive type (2) Cocaine use disorder, severe, dependence: Status: Acute Code(s): F14.20 - Cocaine dependence, uncomplicated Plan Patient is a 42 year old male with hx of Schizoaffective d/o and cocaine use d/o, who presented to [facility] from [facility] PHP d/t suicidal ideation secondary to increased auditory and visual hallucinations. Plan: CV 15 minute safety checks continue home medications referral to outpatient prescriber and therapist encourage groups discharge planning 11/13: Pt signed 3 day notice. Pt stated, I feel okay. I signed a 3 day notice because I want to be with my family rather than being here. They are my best support . Pt reports he feels Haldol is helping the voices and visual hallucinations tolerable . pt denies SI/HI. continue current tx plan. Patient educated on: diagnosis, medication risk/benefits and therapeutic strategies Reason for continued inpatient stay Substantial Risk for: med/psych decompensation Time Spent With Patient Time: Total time managing care of this patient today _20___ minutes.
--- NOTE | 2023-11-14 12:41 | PC.NURSE ---
Patient submitted three day notice.
[2023-11-14] MEDS: HaloperidoL 5 MG TABLET PO ×2 (12:57→17:57)
[2023-11-14] MEDS: diphenhydrAMINE HCL 25 MG CAPSULE 50 MG PO ×2 (12:57→18:23)
[2023-11-14 15:07] VITALS: BP 115/78; PULSE 89
[2023-11-14] MEDS: cloNIDine HCL 0.1 MG TABLET PO ×2 (15:09→21:13)
[2023-11-14 19:10] VITALS: BP 110/75; PULSE 89; RESP 16; TEMP 36.4; O2SAT 98
[2023-11-14 21:13] VITALS: BP 116/76
[2023-11-14] MEDS: traZODone HCL 50 MG TABLET PO (21:13)
[2023-11-14] MEDS: OLANZapine 10 MG TABLET PO (21:13)
[2023-11-14] MEDS: diphenhydrAMINE HCL 25 MG CAPSULE 100 MG PO (21:13)
[2023-11-15 07:40] VITALS: BP 106/61; PULSE 70; RESP 16; TEMP 36.9; O2SAT 96
[2023-11-15] MEDS: Nicotine 21 MG PATCH.TD24 TRANSDERMA (08:56)
[2023-11-15] MEDS: hydrOXYzine HCL 50 MG TABLET PO ×2 (08:57→12:08)
--- NOTE | 2023-11-15 10:06 | P.PNPSI_ITS ---
Subjective Subjective Date of Service: 11/15/23 Reason For Visit: crisis Subjective Notes: 3 Day Interim History: Reviewed with Dr. Warner. Pt reports feeling alright but anxious since my friend got discharged today . Pt reports sleeping well last night. medication compliant. denies SI/HI. Continues to report AH/VH; pt reports he always has those but states they are tolerable with Haldol . Medication Compliance: Yes Side effects from medications: No Attending Groups: Intermittent Review of Systems Constitutional: Reports as per HPI Eyes: Reports as per HPI Reports as per HPI Cardiovascular: Reports as per HPI Respiratory: Reports as per HPI Gastrointestinal: Reports as per HPI Genitourinary: Reports as per HPI Musculoskeletal: Reports as per HPI Skin/Breast: Reports as per HPI Reports as per HPI Psychiatric: Reports as per HPI Endocrine: Reports as per HPI Hematologic/Lymphatic: Reports as per HPI Allergic/Immunologic: Reports as per HPI Mental Status Exam Mental Status Exam Narrative: Pt is alert and oriented; behavior is cooperative and calm; dressed in casual attire; mood is described as alright but anxious ; eye contact appropriate; Speech is normal rate, volume and not pressured; thought process is organized and goal directed; Thought content is on tx; denies SI/HI. pt reports auditory and visual hallucinations but tolerable. Diagnostics Vital Signs (24Hr): Vital Signs - 24 hr 11/14/23 15:07 11/14/23 19:10 11/14/23 21:13 Temperature 97.5 F Pulse Rate 89 89 Respiratory Rate 16 Blood Pressure 115/78 110/75 116/76 Pulse Oximetry 98 Oxygen Delivery Method Room Air 11/15/23 07:40 Temperature 98.4 F Pulse Rate 70 Respiratory Rate 16 Blood Pressure 106/61 Pulse Oximetry 96 Oxygen Delivery Method Room Air BMI result Body Mass Index 27.4 Labs 11/11/23 11:46 11/13/23 09:10 Labs: Laboratory Results - last 48 hr 11/13/23 09:10 Sodium 140 Potassium 4.1 Chloride 107 Carbon Dioxide 25 Anion Gap 12 BUN 12 Creatinine 1.19 Estim Creat Clear Calc 80.0 Estimated GFR > 60 Fasting Glucose 87 Calcium 9.0 Total Bilirubin 0.2 AST 14 ALT 14 Alkaline Phosphatase 68 Total Protein 6.5 Albumin 3.7 Triglycerides 403 H Cholesterol 232 H LDL Cholesterol, Calc TNP HDL Cholesterol 23 L Medications Medications Current Medications Acetaminophen (Acetaminophen 325 Mg Tablet) 650 mg PO Q6H PRN PRN Reason: Headache/Pain Mild Scale (1-3) Al Hydroxide/Mg Hydroxide (Magnesium Hydrox/Alum Hydrox 30 Ml Oral.Susp) 30 ml PO Q6H PRN PRN Reason: Heartburn/Nausea Clonidine HCl (Clonidine Hcl 0.1 Mg Tablet) 0.1 mg PO BEDTIME KAELA; Protocol Last Admin: 11/14/23 21:13 Dose: 0.1 mg Clonidine HCl (Clonidine Hcl 0.1 Mg Tablet) 0.1 mg PO Q4H PRN; Protocol PRN Reason: severe anxiety Last Admin: 11/14/23 15:09 Dose: 0.1 mg Diphenhydramine HCl (Diphenhydramine Hcl 25 Mg Capsule) 100 mg PO BEDTIME KAELA Last Admin: 11/14/23 21:13 Dose: 100 mg Diphenhydramine HCl (Diphenhydramine Hcl 25 Mg Capsule) 50 mg PO TID PRN PRN Reason: EPS prophylaxis. with haldol. Last Admin: 11/14/23 18:23 Dose: 50 mg Haloperidol (Haloperidol 5 Mg Tablet) 5 mg PO TID PRN PRN Reason: severe anxiety Last Admin: 11/14/23 17:57 Dose: 5 mg Hydroxyzine HCl (Hydroxyzine Hcl 50 Mg Tablet) 50 mg PO BID@0800,1200 [facility] Last Admin: 11/15/23 08:57 Dose: 50 mg Magnesium Hydroxide (Milk Of Magnesia 30 Ml Oral.Susp) 30 ml PO DAILY PRN PRN Reason: Constipation Nicotine (Nicotine 21 Mg Patch.Td24) 21 mg TRANSDERMA DAILY [facility] Last Admin: 11/15/23 08:56 Dose: 21 mg Nicotine Polacrilex (Nicotine Polacrilex 2 Mg Gum) 4 mg BUCCAL Q2H PRN PRN Reason: Nicotine Cravings Olanzapine (Olanzapine 10 Mg Tablet) 10 mg PO BEDTIME [facility]A Last Admin: 11/14/23 21:13 Dose: 10 mg Paliperidone Palmitate (Paliperidone Palmitate 234 Mg/1.5 Ml Syringe) 234 mg IM Q30D [facility] Trazodone HCl (Trazodone Hcl 50 Mg Tablet) 50 mg PO BEDTIME MRX1 PRN PRN Reason: Insomnia Last Admin: 11/14/23 21:13 Dose: 50 mg Allergies Allergies Allergy/AdvReac Type Severity Reaction Status Date / Time No Known Allergies Allergy Verified 11/11/23 11:39 Assessment & Plan Assessment & Plan (1) Schizoaffective disorder, depressive type: Status: Acute Code(s): F25.1 - Schizoaffective disorder, depressive type (2) Cocaine use disorder, severe, dependence: Status: Acute Code(s): F14.20 - Cocaine dependence, uncomplicated Plan Patient is a 42 year old male with hx of Schizoaffective d/o and cocaine use d/o, who presented to [facility] ER from [facility] PHP d/t suicidal ideation secondary to increased auditory and visual hallucinations. Plan: CV 15 minute safety checks continue home medications referral to outpatient prescriber and therapist encourage groups discharge planning 11/13: Pt signed 3 day notice. Pt stated, I feel okay. I signed a 3 day notice because I want to be with my family rather than being here. They are my best support . Pt reports he feels Haldol is helping the voices and visual hallucinations tolerable . pt denies SI/HI. continue current tx plan. 11/14: Pt reports feeling alright but anxious since my friend got discharged today . Pt reports sleeping well last night. medication compliant. denies SI/HI. Continues to report AH/VH; pt reports he always has those but states they are tolerable with Haldol . Continue current tx plan. Patient educated on: diagnosis, medication risk/benefits, substance abuse and therapeutic strategies Informed Consent: understands Reason for continued inpatient stay Substantial Risk for: med/psych decompensation Time Spent With Patient Time: Total time managing care of this patient today _20___ minutes.
[2023-11-15] MEDS: diphenhydrAMINE HCL 25 MG CAPSULE 50 MG PO ×2 (10:48→14:55)
[2023-11-15] MEDS: HaloperidoL 5 MG TABLET PO ×2 (10:48→14:55)
[2023-11-15 12:06] VITALS: BP 115/73
[2023-11-15] MEDS: cloNIDine HCL 0.1 MG TABLET PO ×3 (12:06→22:11)
--- NOTE | 2023-11-15 18:35 | MHC.RECOVSUP ---
? Reason for consult Recovery support o Current location: [phone] o Identified substance use concern: NA - Support ? Intervention: o Community resources provided o Harm reduction discussion ? Plan: o Patient to follow up with [facility] after discharge ? Additional information: Met with patient and we talked about recovery.. we talked about harm reduction and resource where to go and get help and be around other people in recovery.
[2023-11-15 19:45] VITALS: BP 140/71; PULSE 95; RESP 16; TEMP 36.6; O2SAT 98
[2023-11-15 19:46] VITALS: BP 140/71
[2023-11-15] MEDS: OLANZapine 10 MG TABLET PO (21:10)
[2023-11-15] MEDS: diphenhydrAMINE HCL 25 MG CAPSULE 100 MG PO (21:10)
[2023-11-15 22:11] VITALS: BP 95/54
[2023-11-16 09:24] VITALS: BP 96/71; PULSE 78; RESP 14; TEMP 36.6; O2SAT 98
[2023-11-16] MEDS: hydrOXYzine HCL 50 MG TABLET PO ×2 (09:26→11:42)
[2023-11-16] MEDS: Nicotine 21 MG PATCH.TD24 TRANSDERMA (09:27)
[2023-11-16] MEDS: HaloperidoL 5 MG TABLET PO ×3 (11:59→19:49)
[2023-11-16 13:34] VITALS: BP 121/73
[2023-11-16] MEDS: cloNIDine HCL 0.1 MG TABLET PO ×3 (13:36→20:44)
--- NOTE | 2023-11-16 13:39 | P.PNPSI_ITS ---
Subjective Subjective Date of Service: 11/16/23 Reason For Visit: crisis Subjective Notes: 3 Day Interim History: Reviewed with Dr. Warner. Pt reports feeling good ; pt stated, I'm happy I'm going home tomorrow . denies SI/HI. Continues to report AH/VH; pt reports he always has those but states they are tolerable with Haldol . Pt reports he plans on following up with outpatient providers and attending PHP. Medication Compliance: Yes Side effects from medications: No Attending Groups: Yes Review of Systems Constitutional: Reports as per HPI Eyes: Reports as per HPI Reports as per HPI Cardiovascular: Reports as per HPI Respiratory: Reports as per HPI Gastrointestinal: Reports as per HPI Genitourinary: Reports as per HPI Musculoskeletal: Reports as per HPI Skin/Breast: Reports as per HPI Reports as per HPI Psychiatric: Reports as per HPI Endocrine: Reports as per HPI Hematologic/Lymphatic: Reports as per HPI Allergic/Immunologic: Reports as per HPI Mental Status Exam Mental Status Exam Narrative: Pt is alert and oriented; behavior is cooperative and calm; dressed in casual attire; mood is described as good ; eye contact appropriate; Speech is normal rate, volume and not pressured; thought process is organized and goal directed; Thought content is on discharge; denies SI/HI. pt reports auditory and visual hallucinations but tolerable. Diagnostics Vital Signs (24Hr): Vital Signs - 24 hr 11/15/23 19:45 11/15/23 19:46 11/15/23 22:11 Temperature 97.8 F Pulse Rate 95 Respiratory Rate 16 Blood Pressure 140/71 H 140/71 H 95/54 L Pulse Oximetry 98 Oxygen Delivery Method Room Air 11/16/23 09:24 11/16/23 13:34 Temperature 97.8 F Pulse Rate 78 Respiratory Rate 14 Blood Pressure 96/71 121/73 Pulse Oximetry 98 Oxygen Delivery Method Room Air BMI result Body Mass Index 27.4 Labs 11/11/23 11:46 11/13/23 09:10 Medications Medications Current Medications Acetaminophen (Acetaminophen 325 Mg Tablet) 650 mg PO Q6H PRN PRN Reason: Headache/Pain Mild Scale (1-3) Al Hydroxide/Mg Hydroxide (Magnesium Hydrox/Alum Hydrox 30 Ml Oral.Susp) 30 ml PO Q6H PRN PRN Reason: Heartburn/Nausea Clonidine HCl (Clonidine Hcl 0.1 Mg Tablet) 0.1 mg PO BEDTIME KAELA; Protocol Last Admin: 11/15/23 22:11 Dose: 0.1 mg Clonidine HCl (Clonidine Hcl 0.1 Mg Tablet) 0.1 mg PO Q4H PRN; Protocol PRN Reason: severe anxiety Last Admin: 11/16/23 13:36 Dose: 0.1 mg Diphenhydramine HCl (Diphenhydramine Hcl 25 Mg Capsule) 100 mg PO BEDTIME K[facility]ELA Last Admin: 11/15/23 21:10 Dose: 100 mg Haloperidol (Haloperidol 5 Mg Tablet) 5 mg PO TID PRN PRN Reason: severe anxiety Last Admin: 11/16/23 11:59 Dose: 5 mg Hydroxyzine HCl (Hydroxyzine Hcl 50 Mg Tablet) 50 mg PO BID@0800,1200 [facility] Last Admin: 11/16/23 11:42 Dose: 50 mg Magnesium Hydroxide (Milk Of Magnesia 30 Ml Oral.Susp) 30 ml PO DAILY PRN PRN Reason: Constipation Nicotine (Nicotine 21 Mg Patch.Td24) 21 mg TRANSDERMA DAILY [facility] Last Admin: 11/16/23 09:27 Dose: 21 mg Nicotine Polacrilex (Nicotine Polacrilex 2 Mg Gum) 4 mg BUCCAL Q2H PRN PRN Reason: Nicotine Cravings Olanzapine (Olanzapine 10 Mg Tablet) 10 mg PO BEDTIME KAELA Last Admin: 11/15/23 21:10 Dose: 10 mg Paliperidone Palmitate (Paliperidone Palmitate 234 Mg/1.5 Ml Syringe) 234 mg IM Q30D [facility] Trazodone HCl (Trazodone Hcl 50 Mg Tablet) 50 mg PO BEDTIME MRX1 PRN PRN Reason: Insomnia Last Admin: 11/14/23 21:13 Dose: 50 mg Allergies Allergies Allergy/AdvReac Type Severity Reaction Status Date / Time No Known Allergies Allergy Verified 11/11/23 11:39 Assessment & Plan Assessment & Plan (1) Schizoaffective disorder, depressive type: Status: Acute Code(s): F25.1 - Schizoaffective disorder, depressive type (2) Cocaine use disorder, severe, dependence: Status: Acute Code(s): F14.20 - Cocaine dependence, uncomplicated Plan Patient is a 42 year old male with hx of Schizoaffective d/o and cocaine use d/o, who presented to [facility] from [facility] d/t suicidal ideation secondary to increased auditory and visual hallucinations. Plan: CV 15 minute safety checks continue home medications referral to outpatient prescriber and therapist encourage groups discharge planning 11/13: Pt signed 3 day notice. Pt stated, I feel okay. I signed a 3 day notice because I want to be with my family rather than being here. They are my best support . Pt reports he feels Haldol is helping the voices and visual hallucinations tolerable . pt denies SI/HI. continue current tx plan. 11/14: Pt reports feeling alright but anxious since my friend got discharged today . Pt reports sleeping well last night. medication compliant. denies SI/HI. Continues to report AH/VH; pt reports he always has those but states they are tolerable with Haldol . Continue current tx plan. 11/15: Pt reports feeling good ; pt stated, I'm happy I'm going home tomorrow . denies SI/HI. Continues to report AH/VH; pt reports he always has those but states they are tolerable with Haldol . Pt reports he plans on following up with outpatient providers and attending PHP. Patient educated on: diagnosis, medication risk/benefits, substance abuse and therapeutic strategies Reason for continued inpatient stay Substantial Risk for: stable for discharge Time Spent With Patient Time: Total time managing care of this patient today _20___ minutes.
[2023-11-16 17:36] VITALS: BP 100/63
[2023-11-16 20:40] VITALS: BP 109/72; PULSE 88; RESP 16; TEMP 36.8; O2SAT 98
[2023-11-16] MEDS: OLANZapine 10 MG TABLET PO (20:44)
[2023-11-16] MEDS: diphenhydrAMINE HCL 25 MG CAPSULE 100 MG PO (20:44)
[2023-11-17 08:00] VITALS: BP 106/72; PULSE 78; RESP 16; TEMP 36.9; O2SAT 98
--- NOTE | 2023-11-17 08:19 | PM.PSYDC ---
DS: Providers Provider Date of Service: 11/17/23 Date of admission: 11/12/23 11:17 Date of discharge: 11/17/23 Primary care physician: Alessandra Physician Admitting clinician: Radha Wei Attending physician on admission: Jeremy Warner Attending physician on discharge: Jeremy Warner Discharging clinician: Radha Wei DS: Diagnosis Discharge Diagnosis (1) Schizoaffective disorder, depressive type: Status: Acute (2) Cocaine use disorder, severe, dependence: Status: Acute DS: Medications Discharge Medications Home Medications: Home Medications ?Medication ?Instructions ?Recorded ?Confirmed clonidine HCl 0.1 mg tablet 0.1 mg PO BEDTIME 11/01/23 11/11/23 diphenhydramine HCl 50 mg capsule 100 mg PO BEDTIME 11/01/23 11/11/23 hydroxyzine pamoate 50 mg capsule 50 mg PO BID 11/01/23 11/11/23 paliperidone palmitate 234 mg/1.5 234 mg IM Q30D 11/01/23 11/11/23 mL intramuscular syringe (Invega Sustenna) olanzapine 10 mg tablet 10 mg PO QPM 11/09/23 11/11/23 Previous Rx's ?Medication ?Instructions ?Recorded haloperidol 5 mg tablet 5 mg PO TID PRN severe anxiety 30 11/16/23 days #30 tabs Mental Status Exam Mental Status Exam Narrative: Pt is alert and oriented; behavior is cooperative and calm; dressed in casual attire; mood is described as good ; eye contact appropriate; Speech is normal rate, volume and not pressured; thought process is organized and goal directed; Thought content is on discharge; denies SI/HI. pt reports auditory and visual hallucinations but tolerable. Data Data Completed and Pending Completed studies during hospitalization [Text1]: 11/11/23 11/11/23 11/11/23 11:45 11:46 13:06 WBC 8.4 RBC 4.44 L Hgb 13.1 L Hct 37.5 L MCV 84.5 MCH 29.5 MCHC 34.9 RDW 13.5 Plt Count 324 MPV 8.8 L Immature Gran % (Auto) 0.4 Neut % (Auto) 64.6 Lymph % (Auto) 25.0 Beckham % (Auto) 7.0 Eos % (Auto) 2.4 Baso % (Auto) 0.6 Lymph # (Auto) 2.1 Beckham # (Auto) 0.6 Eos # (Auto) 0.2 Baso # (Auto) 0.1 Abs Immat Gran (auto) 0.03 Absolute Neuts (auto) 5.5 Absolute Nucleated RBC 0.000 Nucleated RBC % (auto) 0.0 Sodium 138 Potassium 3.7 Chloride 109 H Carbon Dioxide 22 Anion Gap 11 L BUN 8 L Creatinine 0.86 Estim Creat Clear Calc 119.7 Estimated GFR > 60 Random Glucose 101 Fasting Glucose Calcium 9.5 Magnesium 1.9 Total Bilirubin 0.4 Direct Bilirubin < 0.1 AST 14 ALT 11 Alkaline Phosphatase 75 Total Protein 6.8 Albumin 3.9 Triglycerides Cholesterol LDL Cholesterol, Calc HDL Cholesterol Urine Color Yellow Urine Appearance Clear Urine pH 6.0 Ur Specific [place] 1.010 Urine Protein Negative Urine Glucose (UA) Negative Urine Ketones Negative Urine Blood Negative Urine Nitrite Negative Ur Leukocyte Esterase Negative Urine Opiates Screen Not Detected Ur Buprenorphine Scrn Not Detected Ur Oxycodone Screen Not Detected Urine Methadone Screen Not Detected Urine Fentanyl Screen Not Detected Ur Barbiturates Screen Not Detected Ur Phencyclidine Scrn Not Detected Ur Amphetamines Screen Not Detected U Benzodiazepines Scrn Not Detected Urine Cocaine Screen POSITIVE H U Marijuana (THC) Screen POSITIVE H Ethyl Alcohol < 10 11/13/23 09:10 WBC RBC Hgb Hct MCV MCH MCHC RDW Plt Count MPV Immature Gran % (Auto) Neut % (Auto) Lymph % (Auto) Beckham % (Auto) Eos % (Auto) Baso % (Auto) Lymph # (Auto) Beckham # (Auto) Eos # (Auto) Baso # (Auto) Abs Immat Gran (auto) Absolute Neuts (auto) Absolute Nucleated RBC Nucleated RBC % (auto) Sodium 140 Potassium 4.1 Chloride 107 Carbon Dioxide 25 Anion Gap 12 BUN 12 Creatinine 1.19 Estim Creat Clear Calc 80.0 Estimated GFR > 60 Random Glucose Fasting Glucose 87 Calcium 9.0 Magnesium Total Bilirubin 0.2 Direct Bilirubin AST 14 ALT 14 Alkaline Phosphatase 68 Total Protein 6.5 Albumin 3.7 Triglycerides 403 H Cholesterol 232 H LDL Cholesterol, Calc TNP HDL Cholesterol 23 L Urine Color Urine Appearance Urine pH Ur Specific [place] Urine Protein Urine Glucose (UA) Urine Ketones Urine Blood Urine Nitrite Ur Leukocyte Esterase Urine Opiates Screen Ur Buprenorphine Scrn Ur Oxycodone Screen Urine Methadone Screen Urine Fentanyl Screen Ur Barbiturates Screen Ur Phencyclidine Scrn Ur Amphetamines Screen U Benzodiazepines Scrn Urine Cocaine Screen U Marijuana (THC) Screen Ethyl Alcohol DS: Summary Hospital Course Hospital Course: Patient is a 42 year old male with hx of Schizoaffective d/o and cocaine use d/o, who presented to [facility] from [facility] d/t suicidal ideation secondary to increased auditory and visual hallucinations. Per crisis report, Pt told [facility] staff he felt hopeless and suicidal with plan to overdose or stab himself. Pt has been attending [facility] since 11/01/23, referred by [facility] where he was on a Section 35 for 65 days. Pt reported he is triggered in groups at [facility] and believes his medications are not working well for his hallucinations. Pt reported feeling he is a burden to his parents and has been thinking about suicide for several days. Pt stated the last time he felt happy was 6 years ago before his girlfriend . UTOX positive for cocaine and cannabis. Pt received Invega Sustenna IM on 11/08/2023. During admission assessment, pt presents alert, oriented, calm and cooperative. Pt reports feeling depressed today; pt stated, the voices and visions made me want to kill myself. I've had them my whole life, but they started to increase. It sounds like I'm in a auditorium and I see visions of people, sometimes they look normal and sometimes they don't . Pt reports he has been using cocaine for a few days but was clean for months ; he reports smoking marijuana daily. Pt denies other substance use. Pt reports he does not have outpatient psychiatric providers but would like a referral to a psychiatrist and therapist. Pt denies SI/HI. During hospital course, CV 15 minute safety checks continue home medications referral to outpatient prescriber and therapist encourage groups discharge planning Pt signed 3 day notice. Pt stated, I feel okay. I signed a 3 day notice because I want to be with my family rather than being here. They are my best support . Pt reports he feels Haldol is helping the voices and visual hallucinations tolerable . pt denies SI/HI. continue current tx plan. Pt reports feeling alright but anxious since my friend got discharged today . Pt reports sleeping well last night. medication compliant. denies SI/HI. Continues to report AH/VH; pt reports he always has those but states they are tolerable with Haldol . Continue current tx plan. Pt reports feeling good ; pt stated, I'm happy I'm going home tomorrow . denies SI/HI. Continues to report AH/VH; pt reports he always has those but states they are tolerable with Haldol . Pt reports he plans on following up with outpatient providers and attending PHP. Time spent discussing smoking cessation with patient: 3 to 10 minutes Status at Discharge Cognitive/behavioral status at discharge: Patient was interviewed prior to discharge and found to be fully oriented and without SI or HI. Patient has insight and demonstrates good judgment in terms of wanting to pursue treatment. Patient has a safety plan that includes presenting to the closest ER or calling 911 if feeling unsafe. Functional status at discharge: independent ambulation Overall status at discharge: patient is back to baseline Time Spent with Patient Time attestation: Total time managing care of this patient today _20___ minutes. Time spent: Less than 30 minutes Discharge Plan Discharge Anticipated Discharge Date/Time: 11/17/23 11:30 Patient Disposition: Home, Self-Care Discharge Diagnosis: Schizoaffective d/o, cocaine use d/o Referrals: Partial Hospitalization Program (PHP) [Other] - 11/22/23 1:00 pm (If a sooner intake appointment becomes available you will be contacted by staff at [facility]. ) [facility] [Provider Group] - 1 Week (Patient does not have a PCP. [facility] has been added to EMR.) Discharge Medications: New haloperidol 5 mg Tablet 5 mg PO TID PRN (Reason: severe anxiety) 30 Days Qty: 30 0RF Continued clonidine HCl 0.1 mg Tablet 0.1 mg PO BEDTIME diphenhydramine HCl 50 mg Capsule 100 mg PO BEDTIME Rx Instructions: 2 capsules at bedtime. hydroxyzine pamoate 50 mg Capsule 50 mg PO BID Invega Sustenna 234 mg/1.5 mL Syringe 234 mg IM Q30D Patient Comments: Patient stated his father keeps track of when this is due and he stated he is due soon. olanzapine 10 mg Tablet 10 mg PO QPM Discharge Orders: Discharge Order (Routine); Ordered 11/17/23 Ordered By: Radha Wei Diet: Regular diet Activity on Discharge: As tolerated Stand Alone Forms: Patient Portal Discharge page, Community Support Print Language: Greek Care Plan Goals: Maintain mood and safe behaviors Take medications as prescribed Continue to pursue sobriety Practice coping skills Continue with outpatient providers and reach out to them as needed Health Concerns: Mood stability and behaviors Sobriety Plan of Treatment: Follow up with your PCP, psychiatric provider and other outpatient providers regarding above concerns Take medications as prescribed Assessment: Patient was interviewed prior to discharge and found to be fully oriented and without SI or HI. Patient has insight and demonstrates good judgment in terms of wanting to pursue treatment. Patient has a safety plan that includes presenting to the closest ER or calling 911 if feeling unsafe.
[2023-11-17] MEDS: HaloperidoL 5 MG TABLET PO (08:53)
[2023-11-17] MEDS: Nicotine 21 MG PATCH.TD24 TRANSDERMA (08:53)
[2023-11-17] MEDS: hydrOXYzine HCL 50 MG TABLET PO (08:53)
[2023-11-17] MEDS: Naloxone HCl Nasal TAKE HOME 4 MG SPRAY 8 MG NOSTRILALT (10:08)
[2023-11-17 10:21] VITALS: BP 113/64
[2023-11-17] MEDS: cloNIDine HCL 0.1 MG TABLET PO (10:21)
== END 2023-11-17 11:03 | disposition home or self-care (01) | DRG 885 ==
LOC: HO.ED 12:58 → HO.PADLT16 11-12 11:22
PROVIDERS: Physician Assistant; Admitting Provider Registered Nurse; Emergency Provider Emergency Medicine; Responsible Provider Registered Nurse; Visit Provider Psychiatry & Neurology Psychiatry
DX: F25.1 Schizoaffective disorder, depressive type (principal); R45.851 Suicidal ideations; F14.20 Cocaine dependence, uncomplicated; K21.9 Gastro-esophageal reflux disease without esophagitis; F17.210 Nicotine dependence, cigarettes, uncomplicated; F41.1 Generalized anxiety disorder; Z71.6 Tobacco abuse counseling; Z79.899 Other long term (current) drug therapy
CPT/HCPCS: 36415; 80048; 80053; 80061; 80076; 80307; 81003; 83735; 85025; 93005; 99285; S9485

== ENCOUNTER → 2023-11-12 08:04 | Outpatient (BNV) | payer OTHER, SELFPAY | PROVIDERS: Admitting Provider Registered Nurse; Emergency Provider Emergency Medicine; Responsible Provider Registered Nurse; Visit Provider Internal Medicine Cardiovascular Disease | DX: R45.851 Suicidal ideations (principal) | CPT/HCPCS: 93010 ==

== ENCOUNTER → 2023-11-12 11:17 | Outpatient (BNV) | payer OTHER, SELFPAY | PROVIDERS: Admitting Provider Registered Nurse; Emergency Provider Emergency Medicine; Responsible Provider Registered Nurse; Visit Provider Registered Nurse | DX: F25.1 Schizoaffective disorder, depressive type (principal); F14.20 Cocaine dependence, uncomplicated | CPT/HCPCS: 90792; 99231; 99238 ==

== ENCOUNTER 2023-11-29 09:29 | Emergency (ER) | payer OTHER, SELFPAY ==
[2023-11-29 10:01] VITALS: BP 146/92; PULSE 84; RESP 16; TEMP 36.7; O2SAT 97; BMI 29.5
[2023-11-29 10:18] VITALS: BP 146/92; PULSE 84; RESP 16; TEMP 36.7; O2SAT 97
--- NOTE | 2023-11-29 10:19 | ED_ITS ---
HPI - Psych General Chief Complaint: Psychiatric Symptoms Stated Complaint: Crisis Time Seen by Provider: 11/29/23 10:17 Source: patient Mode of arrival: ambulatory Limitations: no limitations History of Present Illness ED Provider: Rosalio Bhandari PA-C HPI Narrative: 42 yo male with history of paranoid schizophrenia, cocaine use disorder, marijuana use, anxiety who presents to the ER from outpatient program for worsening auditory hallucinations and suicidal ideation. Patient reports he always hears voices that sound like a room full of people talking but today they were saying bad things. He states they were telling him to hurt himself. He reports a history of suicide attempt many years ago. He states he was just admitted here to the hospital, and it helped but he thinks he needs more medication changes. He does not think his medications are working. He lives at home with his parents who administers his meds, he has not miss any doses. He endorses increasing depression, anxiety. he has been sleeping and eating normally at home. MD complaint: feels depressed Onset (ago): day(s) Duration: getting worse History of same: Yes Associated psychiatric symptoms: depression, suicidal ideation and auditory hallucinations Associated symptoms: denies other symptoms If self harm: admits thoughts of self harm Related Data Home Medications ?Medication ?Instructions ?Recorded ?Confirmed clonidine HCl 0.1 mg tablet 0.1 mg PO BEDTIME 11/01/23 11/25/23 diphenhydramine HCl 50 mg capsule 100 mg PO BEDTIME 11/01/23 11/25/23 hydroxyzine pamoate 50 mg capsule 50 mg PO BID 11/01/23 11/25/23 paliperidone palmitate 234 mg/1.5 234 mg IM Q30D 11/01/23 11/25/23 mL intramuscular syringe (Invega Sustenna) olanzapine 10 mg tablet 10 mg PO QPM 11/09/23 11/25/23 Previous Rx's ?Medication ?Instructions ?Recorded haloperidol 5 mg tablet 5 mg PO TID PRN anxiety/psychosis 11/17/23 30 days #90 tabs olanzapine 10 mg tablet 5 mg (1/2 x 10 mg) PO BID in AM 11/25/23 and after lunch #30 tabs olanzapine 20 mg tablet 20 mg PO BEDTIME #30 tabs 11/25/23 propranolol 10 mg tablet 10 mg PO TID as directed #30 tabs 11/25/23 Allergies Allergy/AdvReac Type Severity Reaction Status Date / Time No Known Allergies Allergy Verified 11/29/23 10:11 Review of Systems 2 Review of Systems: Yes all other systems are reviewed and are negative [facility] Past Medical History Medical History Cocaine abuse GERD (gastroesophageal reflux disease) Social History Social History Household Members: Family Housing: House Do you presently have visiting nurse or other home services: No Patient Tobacco Use Status: Current everyday Tobacco user Tobacco use type: Cigarette Cigarette Packs Per Day: 2 Cigarettes Per Day: 40.0 Years Smoked: 27 Smoked in Last 30 Days: Yes e-Cigarette/Vaping Use: Never Used Use of substances other than those prescribed or required for medical reasons: Yes Substance Use Type: Crack/Cocaine and Marijuana Advance Directives: No Advance Directives Information Provided: Yes service: No Sexual orientation: Straight/Heterosexual Physical Exam 2 Vital Signs: Vital Signs: Last Vital Signs Temp 98.1 F 11/29/23 10:18 Pulse 84 11/29/23 10:18 Resp 16 11/29/23 10:18 BP 146/92 H 11/29/23 10:18 Pulse Ox 97 11/29/23 10:18 O2 Del Method Room Air 11/29/23 10:18 BMI result Body Mass Index 29.5 Appearance: Alert. Oriented X3. No acute distress. Head: normocephalic, atraumatic. Eyes: Pupils equal, round and reactive to light. ENT: Pharynx normal. No tonsillar swelling or exudate. Neck: Normal inspection. Neck supple. CVS: Normal heart rate and rhythm. Pulses normal. Respiratory: No respiratory distress. Breath sounds normal. Abdomen: Soft and nontender. +BS x4 Skin: Skin warm and dry. Normal skin color. Normal skin turgor. No rashes. Extremities: No lower extremity edema. No joint swelling. Neuro/psych: Oriented X 3. No motor deficit. No sensory deficit. CN II-XII intact. Normal speech and cognition. Flat affect. Poor eye contact. +AH Course Reevaluation(s) Reevaluation #1: remain stable seen by [facility] stable for d/c Time: 12:38 Medications Administered Generic Name Dose Route Start Last Admin Trade Name Freq PRN Reason Stop Dose Admin Haloperidol 5 mg 11/29/23 11:18 11/29/23 11:34 Haloperidol 5 Mg Tablet PO 5 mg TID PRN Administration severe anxiety or agitation Discontinued Medications Generic Name Dose Route Start Last Admin Trade Name Benji PRN Reason Stop Dose Admin Nicotine 21 mg 11/29/23 11:18 11/29/23 11:34 Nicotine 21 Mg Patch.Td24 TRANSDERMA 11/29/23 11:19 21 mg ONCE ONE Administration Medical Decision Making Medical Decision Making MDM Narrative: 42-year-old male with history of schizophrenia, multiple recent admissions this month to and 5 who presents to the ER for depression, anxiety, and acute on chronic auditory hallucinations. He endorses the hallucinations are telling him to hurt himself. He does not have any plan. He has been compliant with his medications after his recent discharge. Vital signs are stable and physical exam is unremarkable. Lab workup shows he tested positive for cocaine again. Seen and evaluated by the care team, no need for inpatient psychiatric admission at this time. He is stable for discharge home with outpatient follow-up. Differential Diagnosis Differential Diagnoses: The differential diagnosis associated with the presentation includes substance induced mood disorder, acute psychosis, schizophrenia, schizoaffective disorder, PTSD, bipolar disorder, major depression with psychotic features Admission/Observation Consideration of admission/observation: Escalation of care including admission/observation considered Lab Data [facility] Lab Attestation statement: I reviewed the patient's lab results. Stable mild anemia 11/29/23 11:30 11/29/23 11:30 Labs: Lab Results 11/29/23 11/29/23 Range/Units 11:30 11:40 WBC 9.3 (4.8-10.8) X10*3/uL RBC 4.68 (4.60-5.80) X10*6/uL Hgb 13.6 L (14.0-18.0) g/dl Hct 39.9 L (42.0-52.0) % MCV 85.3 (80.0-98.0) fL MCH 29.1 (27.0-33.0) pg MCHC 34.1 (31.0-36.0) g/dl RDW 14.0 (11.0-16.0) % Plt Count 330 (160-400) X10*3/uL MPV 8.6 L (9.4-12.4) fL Immature Gran % (Auto) 0.4 (0.0-0.4) % Neut % (Auto) 60.6 (45-73) % Lymph % (Auto) 28.5 (20-40) % [place] % (Auto) 6.7 (2-11) % Eos % (Auto) 3.3 (0-4) % Baso % (Auto) 0.5 (0-2) % Lymph # (Auto) 2.7 (1.2-4.9) X10*3/uL [place] # (Auto) 0.6 (0.1-1.2) X10*3/uL Eos # (Auto) 0.3 (0.0-0.4) X10*3/uL Baso # (Auto) 0.1 (0.0-0.2) X10*3/uL Abs Immat Gran (auto) 0.04 H (0.00-0.03) X10*3/uL Absolute Neuts (auto) 5.7 (2.0-8.3) x10*3/uL Absolute Nucleated RBC 0.000 (0.0-0.012) X10*3/uL Nucleated RBC % (auto) 0.0 (0.0-0.2) /100WBC Sodium 141 (135-145) mmol/L Potassium 4.1 (3.3-5.1) mmol/L Chloride 108 (96-108) mmol/L Carbon Dioxide 26 (22-29) mmol/L Anion Gap 11 L (12-20) BUN 9 (9-16) mg/dL Creatinine 1.08 (0.5-1.4) mg/dL Estim Creat Clear Calc 95.1 Estimated GFR > 60 Random Glucose 115 (60-115) mg/dL Calcium 9.6 D (8.4-10.2) mg/dL Magnesium 2.1 (1.6-2.6) mg/dL Total Bilirubin 0.2 (0.0-1.0) mg/dL Direct Bilirubin < 0.2 (0.0-0.5) mg/dL AST 17 (5-37) U/L ALT 19 (0-40) U/L Alkaline Phosphatase 85 (39-117) U/L Total Protein 7.0 (6.5-8.0) g/dL Albumin 4.0 (3.5-5.0) g/dL Urine Color Yellow Urine Appearance Clear Urine pH 7.0 (5.0-9.0) Ur Specific [place] <= 1.005 (1.005-1.025) Urine Protein Negative (Neg-Trace) mg/dL Urine Glucose (UA) Negative (Negative) mg/dL Urine Ketones Negative (Negative) mg/dL Urine Blood Negative (Negative) Urine Nitrite Negative (Negative) Ur Leukocyte Esterase Negative (Negative) Urine Opiates Screen Not Detected (Not Detect) Ur Buprenorphine Scrn Not Detected (Not Detect) ng/mL Ur Oxycodone Screen Not Detected (Not Detect) ng/mL Urine Methadone Screen Not Detected (Not Detect) ng/mL Urine Fentanyl Screen Not Detected (Not Detect) Ur Barbiturates Screen Not Detected (Not Detect) Ur Phencyclidine Scrn Not Detected (Not Detect) Ur Amphetamines Screen Not Detected (Not Detect) U Benzodiazepines Scrn Not Detected (Not Detect) Urine Cocaine Screen POSITIVE H (Not Detect) U Marijuana (THC) Screen POSITIVE H (Not Detect) Ethyl Alcohol < 10 mg/dL External Record Review External record reviewed: Inpatient record, Outpatient record, Prior outpatient labs and Prior outpatient radiology Prescription Management I considered prescription management with: Other (Antipsychotic) Chronic Conditions Patient?s care impacted by: Other (Schizophrenia) Social Determinants Patient?s care significantly limited by Social Determinants of Health including: Alcoholism and drug addiction in family, Problems related to primary support group and Other Social Determinant of Health Critical Care Time Critical Care Time Critical Care Time: No Discharge Plan Discharge Clinical Impression: Depression Qualifiers: Depression Type: major depressive disorder Major depression recurrence: single episode Active/Remission status: remission status unspecified Qualified Code(s): F32.9 - Major depressive disorder, single episode, unspecified Patient Disposition: Home, Self-Care Instructions: Depression (DC) Additional Instructions: Take all medications as prescribed. Follow-up with your psychiatrist and her therapist. If you develop new or worsening symptoms call 911 or come back to the ER for further evaluation. Prescriptions: No Action clonidine HCl 0.1 mg Tablet 0.1 mg PO BEDTIME diphenhydramine HCl 50 mg Capsule 100 mg PO BEDTIME Rx Instructions: 2 capsules at bedtime. hydroxyzine pamoate 50 mg Capsule 50 mg PO BID Invega Sustenna 234 mg/1.5 mL Syringe 234 mg IM Q30D Patient Comments: Patient stated his father keeps track of when this is due and he stated he is due soon. olanzapine 10 mg Tablet 10 mg PO QPM haloperidol 5 mg tablet 5 mg PO TID PRN (Reason: anxiety/psychosis ) 30 Days Qty: 90 0RF propranolol 10 mg tablet 10 mg PO TID Qty: 30 0RF olanzapine 20 mg tablet 20 mg PO BEDTIME Qty: 30 0RF olanzapine 10 mg tablet 5 mg PO BID Qty: 30 0RF Interventions: Hitchcock-Suicide Risk Severity Scale Last Done: 11/29/23 10:19 Print Language: Singaporean
[2023-11-29] MEDS: Nicotine 21 MG PATCH.TD24 TRANSDERMA (11:34)
[2023-11-29] MEDS: HaloperidoL 5 MG TABLET PO (11:34)
[2023-11-29 11:36] LABS: MANUAL DIFF FLAG NO
[2023-11-29 11:38] LABS: Basophils Absolute Auto 0.1 X10*3/uL (0.0-0.2); Basophils Percent Auto 0.5 % (0-2); Eosinophils Absolute Auto 0.3 X10*3/uL (0.0-0.4); Eosinophils Percent Auto 3.3 % (0-4); Hematocrit 39.9 % (42.0-52.0); Hemoglobin 13.6 g/dl (14.0-18.0); Imm Gran Abs Auto 0.04 X10*3/uL (0.00-0.03); Imm Gran Pct Auto 0.4 % (0.0-0.4); Lymphocytes Absolute Auto 2.7 X10*3/uL (1.2-4.9); Lymphocytes Percent Auto 28.5 % (20-40); Mean Corpuscular HGB Conc 34.1 g/dl (31.0-36.0); Mean Corpuscular Hemoglobin 29.1 pg (27.0-33.0); Mean Corpuscular Volume 85.3 fL (80.0-98.0); Mean Platelet Volume 8.6 fL (9.4-12.4); Monocytes Absolute Auto 0.6 X10*3/uL (0.1-1.2); Monocytes Percent Auto 6.7 % (2-11); Neutrophils Absolute Auto 5.7 x10*3/uL (2.0-8.3); Neutrophils Percent Auto 60.6 % (45-73); Platelet Count 330 X10*3/uL (160-400); Red Blood Count 4.68 X10*6/uL (4.60-5.80); White Blood Count 9.3 X10*3/uL (4.8-10.8)
[2023-11-29 11:49] LABS: Appearance Urine Clear; Color Urine Yellow; Glucose Urine UA Negative (Negative); Leukocyte Esterase Urine Negative (Negative); Nitrite Urine Negative (Negative); Specific Gravity - Urine <= 1.005 (1.005-1.025); Urine Blood Negative (Negative); Urine Ketones Negative (Negative); Urine Protein Negative (Neg-Trace)
[2023-11-29 11:59] LABS: Alanine Aminotransferase 19 U/L (0-40); Alkaline Phosphatase 85 U/L (39-117); Anion Gap 11 (12-20); Aspartate Amino Transferase 17 U/L (5-37); Bilirubin Direct < 0.2 mg/dL (0.0-0.5); Bilirubin Total 0.2 mg/dL (0.0-1.0); Blood Urea Nitrogen 9 mg/dL (9-16); Calcium 9.6 mg/dL (8.4-10.2); Carbon Dioxide 26 mmol/L (22-29); Chloride 108 mmol/L (96-108); Creatinine Clr Calc Pharmacy 95.1; Estimated Glomerular Filt Rate > 60; Ethanol < 10 mg/dL; Glucose Random 115 mg/dL (60-115); Magnesium 2.1 mg/dL (1.6-2.6); Potassium 4.1 mmol/L (3.3-5.1); Sodium 141 mmol/L (135-145)
[2023-11-29 12:01] LABS: Amphetamine Screen Urine Not Detected (Not Detect); Barbiturates, Urine Not Detected (Not Detect); Benzodiazepines Screen Urine Not Detected (Not Detect); Buprenorphine Scr Not Detected (Not Detect); Cannabinoid Screen Urine POSITIVE (Not Detect); Cocaine Screen Urine POSITIVE (Not Detect); Fentanyl, urine Not Detected (Not Detect); Methadone Screen, Urine Not Detected (Not Detect); Opiate Screen Urine Not Detected (Not Detect); Oxycodone Screen Urine Not Detected (Not Detect); Phencyclidine Screen Urine Not Detected (Not Detect)
[2023-11-29 12:57] VITALS: BP 146/92; PULSE 84; RESP 16; TEMP 36.7; O2SAT 97
== END 2023-11-29 12:59 | disposition home or self-care (01) ==
PROVIDERS: Physician Assistant; Emergency Provider Emergency Medicine
DX: R44.0 Auditory hallucinations (principal); R45.851 Suicidal ideations; F32.9 Major depressive disorder, single episode, unspecified; F14.10 Cocaine abuse, uncomplicated; F12.90 Cannabis use, unspecified, uncomplicated; Z79.899 Other long term (current) drug therapy; Z51.81 Encounter for therapeutic drug level monitoring; Z71.51 Drug abuse counseling and surveillance of drug abuser
CPT/HCPCS: 36415; 80048; 80076; 80307; 81003; 83735; 85025; 99284; S9485

== ENCOUNTER 2023-12-07 11:15 | Outpatient (RCR) | payer OTHER, SELFPAY ==
--- NOTE | 2023-11-23 10:24 | HO.PHP ---
Pt arrived to [facility] for programming, stayed for community meeting then approached staff at 9:20 am stating he needed to leave. Stated he felt 'panicky'. Pt encouraged to use coping skills and take a short break to calm and then return but pt insistent I just need to leave , stated he needed to go see his parents he will be back tomorrow. Pt reminded of the attendance policy. Pt adamant he will not miss anymore days. Hardware Supplies Sales Representative suggested he check in with [facility] nurse before leaving, pt declined, stated he was safe. At roughly 10:45 am story writer called Matthew to follow-up. Pt's voice was calmer, reported he was feeling better, said I don't know what came over me , but reported he was with his mother, stated she provided support. Pt stated he would be back tomorrow and apologized for leaving. Pt denied SI, reported he is safe.
[2023-11-24 09:40] VITALS: BP 121/86; PULSE 91; TEMP 36.7
[2023-11-24 09:43] VITALS: BMI 28.1
--- NOTE | 2023-11-24 10:13 | PC.NURSE ---
Appointment with New PCP Dr Joycelyn Rivera. [address] [place] [address] Drive [address], [facility]. On January at 9:00am. Office Number [phone].
--- NOTE | 2023-11-24 15:53 | PC.ADMIT ---
Patient is a 42 year old single male who initially was referred to [facility] after admission to [facility] for 60 day stay after violating terms of his probation including inability to remain drug free, unable to submit random drug tests or engage in outpatient treatment. He was sectioned 35'd by his father on 08/19/23. Patient has a dx of schizoaffective disorder. Patient attended [facility] from 10/31-11/12/23 when he requested to be evaluated by crisis as he felt his medications were not working well and he was experiencing increase in Ah and VH. He also relapsed on cocaine. He was subsequently admitted to [facility]. Patient currently is alert and oriented x4. He is calm and cooperative. His thoughts were logical and clear. He did not appear to be responding to internal stimuli. He denied SI, no HI. He was given a copy of his safety plan if needed. He was somewhat restless at times. Stated he struggles in the group setting. He stated he is taking his medications as prescribed. Reports last used cocaine prior to hospitalization. Reports using marijuana daily at dinner time taking a few puffs and smoking a joint before bed. Medications reconciled with patient and patient's discharge paperwork. He reports taking medications as prescribed.
[2023-11-25 14:28] LABS: Amphetamine Screen Urine Not Detected (Not Detect); Barbiturates, Urine Not Detected (Not Detect); Benzodiazepines Screen Urine Not Detected (Not Detect); Buprenorphine Scr Not Detected (Not Detect); Cannabinoid Screen Urine POSITIVE (Not Detect); Cocaine Screen Urine POSITIVE (Not Detect); Fentanyl, urine Not Detected (Not Detect); Methadone Screen, Urine Not Detected (Not Detect); Opiate Screen Urine Not Detected (Not Detect); Oxycodone Screen Urine Not Detected (Not Detect); Phencyclidine Screen Urine Not Detected (Not Detect)
--- NOTE | 2023-11-25 15:15 | HO.PHP ---
Pt's case was opened and review in team.
--- NOTE | 2023-11-25 21:27 | P.HPPSP_ITS ---
[facility] Date of Service: 11/25/23 Chief Complaint: anxiety,JEFF Sources of Information: patient interviewed, chart reviewed and crisis/core team assessment reviewed [facility] Narrative: Patient is a 42 yo single male with history of depression, psychosis, polysubstance dependence, chronic cocaine addiction, carrying a diagnosis of Schizoaffective Disorder, who is being referred to [facility] as step down from [facility] for ongoing treatment and stabilization due to recent psychiatric decompensation. He had initially started at [facility] in early October, referred from [facility] after completing 60 days of mandatory substance abuse treatment. However he began to experience worsening anxiety, depression, AH, VH with SI thoughts to stab himself, in the context of active drug use, and was admitted to [facility] and was found to screen positive for cocaine, THC. He has legal issues, is currently on probation and is required to submit weekly drug screen which he is potentially in violation of for ongoing substance use. Patient was discharged from one week ago. He has been struggling with anxiety and has been leaving the program early. He did not come to the program today, however his father agrees to accompany him to meet with this ad writer. Patient reports that he is experiencing acute anxiety, severe social anxiety, deeply unnerved and physical restlessness, making it almost impossible for him to sit still in groups or to pay attention. However he says he is motivated to stay at the program if he could get medications to help him with the anxiety, agitation and insomnia. He describes feeling agitated and currently is having trouble attending to our discussion. He has been taking Haldol 5 mg TID which only modestly helps reduce AH but does not feel it is helping with anxiety. Sleep is poor, experiencing nightmares and insomnia. He reports using cocaine 3 days ago. He says it does not cause him any restlessness and usually helps him feel calmer and helps with depression and anxiety. He was started on olanzapine in the hospital which was initially helpful with sleep, but not so much anymore. He was also started on Haldol. He takes the Haldol in the AM and at lunch and does happen to notice more of the restless agitation during the daytime than in the evening. He takes a 3rd dose at night. Under suspicions that the Haldol may be causing akithisia, he is agreeable with holding the Haldol and will plan to increase olanzapine tonight and to utilize 5 mg doses PRN during the day for AVH and anxiety tomorrow. He currently endorses AH currently (people talking in the background), occasional VH but none currently, endorses passive SI related to losing the love of my life several years ago to cancer, but denies any intention or plan of harming himself. He relays his parents are very supportive. Past Psychiatric History: hx of 3 inpatient psychiatric hospitalizations at [facility] Section 35 to [facility] x 65 day long hx of tx on and off since childhood- he is unable to give details Suicide attempt 12 yrs ago after girlfriend . Pt reports he does not have outpatient psychiatric providers. CURRENT MEDICATIONS: olanzapine 10 mg qhs Haldol 5 mg TID hydroxyzine 50 mg BID (AM and HS) clonidine 0.1 mg qhs diphenhydramine 100 mg qhs Invega Sustenna 234 mg monthly injection (last injection 11/07) [facility] Medical History Cocaine abuse GERD (gastroesophageal reflux disease) Family History: Aunt: Schizophrenia Social History: Unmarried, no children Lives with parents Disability Substance History: Cocaine addiction: current use, couple times a week. Recently was using daily Opioid use: variable, dependence back in 20s and 30s with percocets, oxycodone Alcohol use: occasional, in moderation (<2 beers) Cannabis use: occasional, in moderation Nicotine dependence: 1ppd smoker x years Trauma History: denies Diagnostics Vital Signs (24Hr): BMI result Body Mass Index 28.1 Labs Labs: Laboratory Results - last 48 hr 11/25/23 14:07 Urine Opiates Screen Not Detected Ur Buprenorphine Scrn Not Detected Ur Oxycodone Screen Not Detected Urine Methadone Screen Not Detected Urine Fentanyl Screen Not Detected Ur Barbiturates Screen Not Detected Ur Phencyclidine Scrn Not Detected Ur Amphetamines Screen Not Detected U Benzodiazepines Scrn Not Detected Urine Cocaine Screen POSITIVE H U Marijuana (THC) Screen POSITIVE H Meds/Allergies Meds Home Medications ?Medication ?Instructions ?Recorded ?Confirmed ?Type clonidine HCl 0.1 mg tablet 0.1 mg PO BEDTIME 11/01/23 11/25/23 History diphenhydramine HCl 50 mg capsule 100 mg PO BEDTIME 11/01/23 11/25/23 History hydroxyzine pamoate 50 mg capsule 50 mg PO BID 11/01/23 11/25/23 History paliperidone palmitate 234 mg/1.5 234 mg IM Q30D 11/01/23 11/25/23 History mL intramuscular syringe (Invega Sustenna) olanzapine 10 mg tablet 10 mg PO QPM 11/09/23 11/25/23 History Allergies Allergies Allergy/AdvReac Type Severity Reaction Status Date / Time No Known Allergies Allergy Verified 11/29/23 10:11 Mental Status Exam Mental Status Exam Patient Appearance: Disheveled (adentulous, bearded, appears older than age) Patient Orientation: Person, Place and Situation Level of Consciousness: Awake, Restless and Alert Patient Behavior: Cooperative, Anxious, Fatigued, Distractible and Poor Eye Contact Mood Description: Depressed and Anxious Affect Description: Withdrawn and Apprehensive Patient Cognition Impaired: Yes Ability to Follow Directions: Good Speech Pattern: Difficulty Finding Words, Coherent and Delayed Hallucinations: Auditory Delusions: Not Present Thought Process: Distracted Thought Content: positive for Poverty of Content, positive for Preoccupation and positive for Suicidal Ideation Depressive Symptoms: Increased Anxiety, Insomnia, Diff. Making Decisions, Increased Irritability, Difficulty Sleeping, Isolating-Friends/Family and Difficulty Concentrating Abnormal Motor Activity Signs and Symptoms: Agitation and Restlessness Judgement: Fair Assessment & Plan Assessment & Plan (1) Schizoaffective disorder, depressive type: Status: Acute Code(s): F25.1 - Schizoaffective disorder, depressive type (2) Cocaine use disorder, severe, dependence: Status: Acute Code(s): F14.20 - Cocaine dependence, uncomplicated (3) Cannabis use disorder, severe, dependence: Status: Acute Code(s): F12.20 - Cannabis dependence, uncomplicated (4) LISY (generalized anxiety disorder): Status: Acute Code(s): F41.1 - Generalized anxiety disorder Plan Admit to [facility] VS reviewed: jayden, BP 121/86; 91 bpm increase olanzapine to 20 mg qhs start olanzapine 5 mg qam and 5 mg qd prn hold Haldol tonight (r/o akithisia vs anxiety) continue hydroxyzine 50 mg BID (AM and HS) start propranolol 10 mg TID hold clonidine 0.1 mg qhs continue diphenhydramine 100 mg qhs continue Invega Sustenna monthly injection (last injection 11/07, next due 12/06)? Reviewed recent lab work from 11/10 and 11/28 with noted hyperlipidemia, mild anemia, UDS+cocaine, cannabis pending UDS results from today EKG, routine for baseline QTc for medication considerations MassPat reviewed Continue to monitor as per protocol Patient educated on: diagnosis, medication risk/benefits and substance abuse Informed Consent: understands Reason for continued partial hosp. stay Substantial Risk for: inability to function, rapid decompensation and med/psych decompensation Certification I certify that partial hospital treatment is medically necessary due to the symptoms and problems resulting from the patient's mental illness and the failure to treat the patient at the partial hospital level of care would likely result in the patient requiring inpatient psychiatric care which could not be prevented at a less intensive level of care. Time Spent With Patient Time: Total time managing care of this patient today __60__ minutes.
--- NOTE | 2023-11-26 21:41 | HO.PHPPROGNO ---
Subjective Subjective Date of Service: 11/26/23 Reason For Visit: anxiety,JEFF Interim History: Patient seen for follow-up. Reports doing better with the Zyprexa 20 mg qhs, up from 10 mg. He also took the 5 mg this AM and feels it helped reduce his anxiety, especially social anxiety, and is better managing being around people this morning. It seems to last about 2 hours and already feeling he could take another 5 mg. Some AH remains but is in the background. We plan to continue prn use of 5 mg Zyprexa. He also reports that internal agitated feeling of anxiety has resolved with stopping Haldol. mood is ok denies any depressive feelings, mostly feeling stressed. Denies any SI presently. He denies any cocaine use in the interim, says he usually uses about ~2 times a month. Says he was last doing well over 12 years ago when my girl was still alive . 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 We had been together pretty much since they were 13. He shows tattoo of song title Rise Above by Simon Pyle (has gone to see over 200 of his shows). Relays a great love and appreciation for music and reading. He says he tries to read a couple books a week. He recently finished Cold Fire by Jay Plasencia. Medication Compliance: Yes Side effects from medications: No Attending Groups: Yes Review of Systems Acute medical concerns: No Mental Status Exam Mental Status Exam Narrative: Alert, oriented, in no acute distress. Calm, cooperative, less guarded more engaged. No psychomotor agitation or neurovegetative retardation. Eye contact maintained. Mood anxious, affect less constricted. Speech normal. Thought process linear, coherent. Thought content related to stressors, denies any helplessness, hopelessness or SI.? No aggressive ideation or HI. Endorses trnasient AH and VH, mild paranoia or delusional content elicited. Insight and judgment fair but adequate. Diagnostics Vital Signs (24Hr): BMI result Body Mass Index 28.1 Labs Labs: Laboratory Results - last 48 hr 11/25/23 14:07 Urine Opiates Screen Not Detected Ur Buprenorphine Scrn Not Detected Ur Oxycodone Screen Not Detected Urine Methadone Screen Not Detected Urine Fentanyl Screen Not Detected Ur Barbiturates Screen Not Detected Ur Phencyclidine Scrn Not Detected Ur Amphetamines Screen Not Detected U Benzodiazepines Scrn Not Detected Urine Cocaine Screen POSITIVE H U Marijuana (THC) Screen POSITIVE H Assessment & Plan Assessment & Plan (1) Schizoaffective disorder, depressive type: Status: Acute Code(s): F25.1 - Schizoaffective disorder, depressive type (2) Cocaine use disorder, severe, dependence: Status: Acute Code(s): F14.20 - Cocaine dependence, uncomplicated (3) Cannabis use disorder, severe, dependence: Status: Acute Code(s): F12.20 - Cannabis dependence, uncomplicated (4) LISY (generalized anxiety disorder): Status: Acute Code(s): F41.1 - Generalized anxiety disorder Plan continue olanzapine 20 mg qhs continue olanzapine 5 mg qam may take olanzapine 5 mg PRN BID continue to hold Haldol tonight (possibly causing akithisia) feeling better today since held doses last night and this am continue hydroxyzine 50 mg BID (AM and HS) continue propranolol 10 mg TID (AM, midday, late afternoon) - pt aware to hold for lightheadedness continue clonidine 0.1 mg QHS (patient aware to space propranolol doses from HS clonidine) continue diphenhydramine 100 mg qhs continue Invega Sustenna monthly injection (last injection 11/07 - next due ~12/06 )? Routine lab work as indicated EKG, routine for baseline QTc for medication considerations Reviewed w patient UDS from 11/24 +cocaine +cannabis Continue to monitor Patient educated on: diagnosis, medication risk/benefits and substance abuse Informed Consent: understands Reason for contiued partial hosp. stay Substantial Risk for: inability to function and med/psych decompensation Certification I certify that partial hospital treatment is medically necessary due to the symptoms and problems resulting from the patient's mental illness and the failure to treat the patient at the partial hospital level of care would likely result in the patient requiring inpatient psychiatric care which could not be prevented at a less intensive level of care. Total time managing care of this patient today _30___ minutes. Discharge Plan Discharge Attending provider: Sarita Garvin Medications: New propranolol 10 mg tablet 10 mg PO TID Qty: 30 0RF olanzapine 20 mg tablet 20 mg PO BEDTIME Qty: 30 0RF olanzapine 10 mg tablet 5 mg PO BID Qty: 30 0RF No Action clonidine HCl 0.1 mg Tablet 0.1 mg PO BEDTIME diphenhydramine HCl 50 mg Capsule 100 mg PO BEDTIME Rx Instructions: 2 capsules at bedtime. hydroxyzine pamoate 50 mg Capsule 50 mg PO BID Invega Sustenna 234 mg/1.5 mL Syringe 234 mg IM Q30D Patient Comments: Patient stated his father keeps track of when this is due and he stated he is due soon. olanzapine 10 mg Tablet 10 mg PO QPM haloperidol 5 mg tablet 5 mg PO TID PRN (Reason: anxiety/psychosis ) 30 Days Qty: 90 0RF Stand Alone Forms: Patient Portal Discharge page Print Language: Uzbek
--- NOTE | 2023-11-29 09:36 | PC.NURSE ---
Patient stated he needs to check himself into the behavioral health unit. Stated he is struggling with the Anniversary of his girlfriend being dx of cancer and subsequently passing away. He stated his medications are not right and experiencing AH. He does experience chronic AH and VH. He reports suicidal thoughts however denied any plans or intent and did not elaborate. Stated he wants to check himself in as he does not want to do anything stupid. He called his father and let him know that he is checking himself in to the hospital. I walked Pierre to the ER without incident. Nurse to Nurse done with Yash BOWLING.
--- NOTE | 2023-11-30 10:05 | HO.PHP ---
A referral for providers was placed with [facility] during pt's last admission, 2-3 weeks ago, (11/01/23 to 11/12/23). Pt did not attend the therapy intake so a new referral will be required for a therapist. Pt's Med provider referral was also placed during his last admission, the date is still scheduled for December 21, 2023 at 11 AM via telehealth with Kendra Winter. Cutting Tool Sharpener called [facility] to confirm.
--- NOTE | 2023-12-03 23:52 | HO.PHPPROGNO ---
Subjective Subjective Date of Service: 12/03/23 Reason For Visit: anxiety,JEFF Interim History: Patient reports he has been doing better. I dont feel like a burden to my parents anymore . Mood is better as well as generalized anxiety and AH is minimal. Anxiety is better since starting propranolol. We discussed increasing propranolol, but first will check vitals by nurse. He has continued to take Haldol once a day, reports the akithisia has resolved since discontinuing the Haldol, but on occasion had been taking to help with anxiety and finds that it was causing akithisia about 2 hours after taking, but lasts only a short time. Medication Compliance: Yes Side effects from medications: No Attending Groups: Yes Review of Systems Acute medical concerns: No Mental Status Exam Mental Status Exam Narrative: Alert, oriented, in no acute distress. Calm, cooperative, less guarded more engaged. No psychomotor agitation or neurovegetative retardation. Eye contact maintained. Mood anxious, affect less constricted. Speech normal. Thought process linear, coherent. Thought content related to stressors, denies any helplessness, hopelessness or SI.? No aggressive ideation or HI. Endorses trnasient AH and VH, mild paranoia or delusional content elicited. Insight and judgment fair but adequate. Diagnostics Vital Signs (24Hr): BMI result Body Mass Index 28.1 Assessment & Plan Assessment & Plan (1) Schizoaffective disorder, depressive type: Status: Acute Code(s): F25.1 - Schizoaffective disorder, depressive type (2) Cocaine use disorder, severe, dependence: Status: Acute Code(s): F14.20 - Cocaine dependence, uncomplicated (3) Cannabis use disorder, severe, dependence: Status: Acute Code(s): F12.20 - Cannabis dependence, uncomplicated (4) LISY (generalized anxiety disorder): Status: Acute Code(s): F41.1 - Generalized anxiety disorder Plan continue olanzapine 20 mg qhs continue olanzapine 5 mg qam may take olanzapine 5 mg PRN BID continue to hold Haldol tonight (possibly causing akithisia) feeling better today since held doses last night and this am continue hydroxyzine 50 mg BID (AM and HS) increase propranolol 10-20 mg TID (AM, midday, late afternoon) - pt aware to hold for lightheadedness continue clonidine 0.1 mg QHS (patient aware to space propranolol doses from HS clonidine) continue diphenhydramine 100 mg qhs continue Invega Sustenna monthly injection (last injection 11/07 - next due ~12/06 )? Routine lab work as indicated EKG, routine for baseline QTc for medication considerations Reviewed w patient UDS from 11/24 +cocaine +cannabis Continue to monitor Patient educated on: diagnosis, medication risk/benefits and substance abuse Informed Consent: understands Reason for contiued partial hosp. stay Substantial Risk for: med/psych decompensation Certification I certify that partial hospital treatment is medically necessary due to the symptoms and problems resulting from the patient's mental illness and the failure to treat the patient at the partial hospital level of care would likely result in the patient requiring inpatient psychiatric care which could not be prevented at a less intensive level of care. Total time managing care of this patient today _30___ minutes. Discharge Plan Discharge Attending provider: Sarita Garvin Medications: New olanzapine 20 mg tablet 20 mg PO BEDTIME Qty: 30 0RF olanzapine 10 mg tablet 5 mg PO BID Qty: 30 0RF Continued clonidine HCl 0.1 mg Tablet 0.1 mg PO BEDTIME diphenhydramine HCl 50 mg Capsule 100 mg PO BEDTIME Rx Instructions: 2 capsules at bedtime. hydroxyzine pamoate 50 mg Capsule 50 mg PO BID Invega Sustenna 234 mg/1.5 mL Syringe 234 mg IM Q30D Patient Comments: Patient stated his father keeps track of when this is due and he stated he is due soon. propranolol 20 mg tablet 20 mg PO TID 15 Days Qty: 45 0RF Rx Instructions: with breakfast, lunch, dinner by 5pm Changed haloperidol 5 mg tablet 5 mg PO DAILY PRN (Reason: anxiety/psychosis ) 30 Days Qty: 90 0RF Discontinued olanzapine 10 mg Tablet 10 mg PO QPM Stand Alone Forms: Patient Portal Discharge page Patient Education: Schizoaffective Disorder (DC) Print Language: Mauritanian
--- NOTE | 2023-12-06 11:41 | PC.NURSE ---
Pierre left after the first group. I called and spoke to Matthew to f/u. He stated he was not feeling right and was feeling out of place so he went home. He did not elaborate. He stated he is with his father and I could here his father in the background. He stated he felt safe and does not feel he needs to go to the hospital. He plans on returning to the program tomorrow for discharge. He stated he needs a refill of Propranolol. Dr Garvin is aware.
--- NOTE | 2023-12-06 13:57 | HO.PHP ---
[facility] staff member contacted [facility] and spoke to Debbie to gather the appointment dates and times for Pierre. Debbie disclosed that Pierre's OP therapy intake appointment is scheduled for December 13, 2023 at 10 AM with Sahra Martinez at the [address] [place] [address]. Pierre's med provider meeting is on December 23, 2023 at 11 AM with Nitza Calhoun via telehealth. Debbie did ask if the [facility] staff member could obtain his email for them. [facility] staff member was receptive.
--- NOTE | 2023-12-07 23:48 | HO.PHPPROGNO ---
Subjective Subjective Date of Service: 12/07/23 Reason For Visit: anxiety,JEFF Interim History: Patient seen for follow-up, anticipating discharge at the end of program today.? Reports being more stable, consistent on Zyprexa 5/5/20 mg. Increasing propranolol to 10 mg TID which has been helpful for somatic anxiety, and panic symptoms. He's been enjoying reading books, denies any cocaine use since Wednesday. Reports no acute issues or concerns. Medication compliant, medications well-tolerated. Denies any adverse effects.?Mood is stable.? Denies any hopelessness or SI. Denies thoughts of harming self or others at this time. Denies any aggressive ideation or HI. Denies any paranoia or AH or VH. Sleep, appetite, energy stable. Medication Compliance: Yes Side effects from medications: No Attending Groups: Yes Review of Systems Acute medical concerns: No Mental Status Exam Mental Status Exam Narrative: Alert, oriented, in no acute distress. Calm, cooperative. Mood anxious, affect appropriate. Speech normal. Thought process linear, coherent, more goal-directed. Thought content related to stressors, future-oriented, denies any helplessness, hopelessness or SI.? No aggressive ideation or HI. No paranoia or delusional content elicited. No evidence of psychosis. Insight and judgment fair-good. Diagnostics Vital Signs (24Hr): BMI result Body Mass Index 28.1 Assessment & Plan Assessment & Plan (1) Schizoaffective disorder, depressive type: Status: Acute Code(s): F25.1 - Schizoaffective disorder, depressive type (2) Cocaine use disorder, severe, dependence: Status: Acute Code(s): F14.20 - Cocaine dependence, uncomplicated (3) Cannabis use disorder, severe, dependence: Status: Acute Code(s): F12.20 - Cannabis dependence, uncomplicated (4) LISY (generalized anxiety disorder): Status: Acute Code(s): F41.1 - Generalized anxiety disorder Plan Discharge from [facility] [place] Continue regular medications Refills sent to pharmacy Will defer further medication management to outpatient provider *Safety plan reviewed *Discharge diagnoses, treatment course, discharge plan have been reviewed with patient (including medication regime, medication management, potential side effects) as well as rreatment rationale were also revisited *Discharge paperwork signed and given to patient, copy sent for scanning to chart Patient educated on: diagnosis, medication risk/benefits and substance abuse Informed Consent: understands Reason for contiued partial hosp. stay Substantial Risk for: stable for discharge Certification I certify that partial hospital treatment is medically necessary due to the symptoms and problems resulting from the patient's mental illness and the failure to treat the patient at the partial hospital level of care would likely result in the patient requiring inpatient psychiatric care which could not be prevented at a less intensive level of care. Total time managing care of this patient today __30__ minutes. Discharge Plan Discharge Attending provider: Sarita Garvin Medications: New olanzapine 20 mg tablet 20 mg PO BEDTIME Qty: 30 0RF olanzapine 10 mg tablet 5 mg PO BID Qty: 30 0RF Continued clonidine HCl 0.1 mg Tablet 0.1 mg PO BEDTIME diphenhydramine HCl 50 mg Capsule 100 mg PO BEDTIME Rx Instructions: 2 capsules at bedtime. hydroxyzine pamoate 50 mg Capsule 50 mg PO BID Invega Sustenna 234 mg/1.5 mL Syringe 234 mg IM Q30D Patient Comments: Patient stated his father keeps track of when this is due and he stated he is due soon. propranolol 20 mg tablet 20 mg PO TID 15 Days Qty: 45 0RF Rx Instructions: with breakfast, lunch, dinner by 5pm Changed haloperidol 5 mg tablet 5 mg PO DAILY PRN (Reason: anxiety/psychosis ) 30 Days Qty: 90 0RF Discontinued olanzapine 10 mg Tablet 10 mg PO QPM Stand Alone Forms: Patient Portal Discharge page Patient Education: Schizoaffective Disorder (DC) Print Language: Amharic
--- NOTE | 2023-12-16 15:08 | PM.EVENT ---
Event Note Date of Service: 12/16/23 Event Note: Patient requesting refills on various medications - olanzapine 20 mg qhs, olanzapine 10 mg (split as 5 mg BID), diphenhydramine 50 mg qhs prn with 4 days supply left on each. Scripts efaxed over to pharmacy. Remaining medications propranolol 20 mg with 12 days left, haloperidol 5 mg with 12 days left, hydroxyzine 50 mg with 15 days left, clonidine 0.1 mg with 17 days left. New prescriber appointment scheduled for 12/20 so appears to have enough of these medications to get to appointment. Time Spent With Patient Time: Total time managing care of this patient today __10__ minutes.
--- NOTE | 2023-12-23 11:30 | HO.PHP ---
PHP staff member received a VM from Nita through [facility], who informed the clinician that she spoke to Pierre and he will be seen today at 1 PM with the same med provider.
--- NOTE | 2023-12-23 12:11 | HO.PHP ---
Pierre and his father came to the program due to [facility] not contacting them for their appointment this morning that was scheduled for 12/23/23 at 11 AM. Pierre's father disclosed that he will be out of medications in two days and needs a medication refill. [facility] provider, Dr. Garvin is going to refill the prescription for two weeks and allow for one refill on his medications so he will be covered for a month. [facility] staff member contacted Debbie through [facility], who stated the med provider through them contacted him this morning and he did not answer. PHP staff asked for the number they contacted, which was not the number placed on the referral. Pierre's father disclosed that is an old land line that they haven't had for a year. Debbie stated that she will work with the medical team to get him a new appointment. [facility] staff asked for clarification from Nita around if she updated his number in the chart so this does not occur again. Nita mentioned she has. [facility] staff member was receptive. PHP staff informed Pierre and his father about the refills and disclosed if they still are unable to get medication refilled, they will have him continue medication refills through [facility] through [facility] until a med provider is established. Pierre and his father were receptive.
--- NOTE | 2023-12-23 21:52 | PM.EVENT ---
Event Note Date of Service: 12/23/23 Event Note: Patient and father arrived to [facility] to request refills on medications. Patient was scheduled for an intake this morning, but this did not happen (apparently no clinician arrived for the virtual appointment). [facility] staff is following up on this to get intake appointment rescheduled. 2 weeks (+RF1) efaxed to pharmacy on all of Pierre's medications. Time Spent With Patient Time: Total time managing care of this patient today _10___ minutes.
== END 2023-12-07 23:59 | disposition home or self-care (01) ==
LOC: HO.PHPA 11:15
PROVIDERS: Visit Provider Psychiatry & Neurology Psychiatry
DX: F25.1 Schizoaffective disorder, depressive type (principal); F41.1 Generalized anxiety disorder; F14.20 Cocaine dependence, uncomplicated; F12.20 Cannabis dependence, uncomplicated; Z79.899 Other long term (current) drug therapy
CPT/HCPCS: 80307; 90791; 90853

== ENCOUNTER 2024-07-07 10:45 | Emergency (ER) | payer OTHER, SELFPAY ==
--- NOTE | 2024-07-07 11:53 | PC.NURSE ---
no answer for michel at 11:53
== END 2024-07-07 11:54 | disposition left against medical advice (07) ==
PROVIDERS: Emergency Provider Emergency Medicine
DX: R10.9 Unspecified abdominal pain (principal); Z53.21 Procedure and treatment not carried out due to patient leaving prior to being seen by health care provider